=== PATIENT | female | born 1995 | race Caucasian/White ===

== ENCOUNTER → 2016-09-01 | Day surgery (SDC) | payer OTHER ==
[2016-08-31 18:54] LABS: BASOPHIL # 0.1 10^3/uL (0.0-0.1); BASOPHIL % 0.4 % (0.0-0.2); EOSINOPHIL # 0.2 10^3/uL (0.0-0.2); EOSINOPHIL % 1.3 % (0.0-5.0); HEMATOCRIT 36.9 % (36.0-46.0); HEMOGLOBIN 12.2 g/dL (12.0-15.0); LYMPHOCYTES # 3.3 10^3/uL (1.0-4.8); LYMPHOCYTES % 20.4 % (24.0-44.0); MEAN CELL HGB 26.7 pg (26-34); MEAN CELL HGB CONCENTRATION 33.1 g/dL (33-37); MEAN CORP VOLUME 80.7 fL (78-100); MEAN PLATELET VOLUME 11.9 fL (7.8-11.0); MONOCYTES # 0.7 10^3/uL (0.3-0.8); NEUTROPHILS % 73.6 % (41.0-85.0); RED CELL DISTRIBUTION WIDTH 14.9 % (11.5-14.5); WHITE BLOOD CELL 16.4 10^3/uL (4.5-11.0)
[2016-08-31 19:09] LABS: CALCIUM 9.4 mg/dL (8.4-10.5); CARBON DIOXIDE 24.8 mmol/L (20.0-32)
[2016-08-31 19:15] LABS: BILIRUBIN,URINE NEGATIVE (NEGATIVE); UROBILINOGEN,URINE NORMAL (NEGATIVE)
[2016-08-31 19:16] LABS: APPEARANCE,URINE CLOUDY (CLEAR); UA COLOR YELLOW (YELLOW)
[~2016-09-01] VITALS: Ht 170.2 cm; Wt 102.5 kg
[2016-09-01] VITALS (10 sets, daily range): BP systolic 115–132; BP diastolic 72–85
[~2016-09-01] MED LIST: DECADRON ONE; DIPRIVAN IV ONE; DOXY100T PO; GLIP5TAB10 PO; HYDR-926 PO; IBUP800T PO; METHYLENE BLUE IJ ONE; MOTRIN ONE; MOTRIN PO ONE; PULMICORT IH ONE; PULMICORT IH STA; SENSORCAINE-MPF 0.5% VIAL ONE; SODIUM CHLORIDE IR ONE; SODIUM CHLORIDE IRR BAG 1,000 ML ONE; SUBLIMAZE ONE; TORADOL ONE; VENTOLIN IH ONE; VENTOLIN IH SCH; VENTOLIN IH STA; VERSED ONE; ZEMURON IV ONE; ZOFRAN ONE
[2016-09-01] MEDS: NS 1000ML 1,000 ML IV SCH ×2 (07:58→10:45)
== END | disposition home or self-care (01) ==
LOC: SDC 00:11
PROVIDERS: ATTEND Obstetrics & Gynecology
DX: N70.11 Chronic salpingitis (principal); I10 Essential (primary) hypertension; J45.909 Unspecified asthma, uncomplicated
CPT/HCPCS: 36415; 49320; 80048; 81000; 81025; 82948; 85025; 87086; 94640; A4338; J1100; J1885; J2250; J2405; J3010; J3490 ×2; J7030 ×2; J7613; J7627

== ENCOUNTER → 2016-11-15 | Outpatient (CLI) | payer OTHER ==
[~2016-11-15] MED LIST changes: -DECADRON ONE; -DIPRIVAN IV ONE; -METHYLENE BLUE IJ ONE; -MOTRIN ONE; -MOTRIN PO ONE; -PULMICORT IH ONE; -PULMICORT IH STA; -SENSORCAINE-MPF 0.5% VIAL ONE; -SODIUM CHLORIDE IR ONE; -SODIUM CHLORIDE IRR BAG 1,000 ML ONE; -SUBLIMAZE ONE; -TORADOL ONE; -VENTOLIN IH ONE; -VENTOLIN IH SCH; -VENTOLIN IH STA; -VERSED ONE; -ZEMURON IV ONE; -ZOFRAN ONE
[2016-11-15 11:17] LABS: BASOPHIL # 0.1 10^3/uL (0.0-0.1); BASOPHIL % 0.7 % (0.0-0.2); BILIRUBIN,URINE NEGATIVE (NEGATIVE); EOSINOPHIL # 0.2 10^3/uL (0.0-0.2); EOSINOPHIL % 1.3 % (0.0-5.0); HEMATOCRIT 36.5 % (36.0-46.0); HEMOGLOBIN 12.2 g/dL (12.0-15.0); LYMPHOCYTES # 2.3 10^3/uL (1.0-4.8); LYMPHOCYTES % 19.4 % (24.0-44.0); MEAN CELL HGB 27.1 pg (26-34); MEAN CELL HGB CONCENTRATION 33.4 g/dL (33-37); MEAN CORP VOLUME 81.1 fL (78-100); MEAN PLATELET VOLUME 12.2 fL (7.8-11.0); MONOCYTES # 0.5 10^3/uL (0.3-0.8); MONOCYTES % 3.9 % (5.0-12.0); NEUTROPHIL # 8.8 10^3/uL (1.8-7.7); NEUTROPHILS % 74.3 % (41.0-85.0); RED CELL DISTRIBUTION WIDTH 14.3 % (11.5-14.5); UROBILINOGEN,URINE NORMAL (NEGATIVE); WHITE BLOOD CELL 11.9 10^3/uL (4.5-11.0)
[2016-11-15 11:57] LABS: APPEARANCE,URINE CLEAR (CLEAR); UA COLOR YELLOW (YELLOW)
[2016-11-15 11:58] LABS: WBC,URINE NONE SEEN WBC/HPF (0-2)
[2016-11-15 12:04] LABS: CALCIUM 8.9 mg/dL (8.4-10.5); CARBON DIOXIDE 24.9 mmol/L (20.0-32)
== END | disposition home or self-care (01) ==
LOC: LAB 10:58
PROVIDERS: ATTEND Pediatrics
DX: I10 Essential (primary) hypertension (principal); E11.9 Type 2 diabetes mellitus without complications; R53.83 Other fatigue
CPT/HCPCS: 36415; 80053; 80061; 81000; 83036; 85025; 85651; 87086

== ENCOUNTER → 2016-11-16 | Outpatient (CLI) | payer OTHER ==
[2016-11-16 10:16] LABS: BASOPHIL # 0.1 10^3/uL (0.0-0.1); BASOPHIL % 0.9 % (0.0-0.2); EOSINOPHIL # 0.2 10^3/uL (0.0-0.2); EOSINOPHIL % 1.5 % (0.0-5.0); HEMATOCRIT 38.1 % (36.0-46.0); HEMOGLOBIN 12.7 g/dL (12.0-15.0); LYMPHOCYTES # 2.4 10^3/uL (1.0-4.8); LYMPHOCYTES % 20.6 % (24.0-44.0); MEAN CELL HGB CONCENTRATION 33.3 g/dL (33-37); MEAN CORP VOLUME 81.1 fL (78-100); MEAN PLATELET VOLUME 12.2 fL (7.8-11.0); MONOCYTES # 0.5 10^3/uL (0.3-0.8); MONOCYTES % 4.2 % (5.0-12.0); NEUTROPHIL # 8.5 10^3/uL (1.8-7.7); NEUTROPHILS % 72.5 % (41.0-85.0); RED CELL DISTRIBUTION WIDTH 14.3 % (11.5-14.5); WHITE BLOOD CELL 11.7 10^3/uL (4.5-11.0)
== END | disposition home or self-care (01) ==
LOC: LAB 09:23
PROVIDERS: ATTEND Pediatrics
DX: R10.13 Epigastric pain (principal); R53.81 Other malaise
CPT/HCPCS: 36415; 80076; 82150; 83690; 84702; 84703; 85025; 86677

== ENCOUNTER → 2017-04-06 | Outpatient (CLI) | payer OTHER ==
[~2017-04-06] MED LIST changes: +IBUP-1131 PO; -IBUP800T PO
--- NOTE | 2017-04-06 12:18 | DIREP ---
PROCEDURE:US OB 1ST TRIMESTER COMPARISON:None. INDICATIONS:O24.414 GEST DIABETES, Z3A.01 LESS THAN 8 WKS TECHNIQUE:Transabdominal and endovaginal pelvic ultrasound examinations were performed. Endovaginal images were performed to optimally evaluate the and maternal adnexal structures. FINDINGS: UTERUS: 7.6 x 4.8 x 6.0 cm. Nabothian cysts. RIGHT OVARY: 4.3 x 2.3 x 2.4 cm. Negative. LEFT OVARY: 3.3 x 1.9 x 1.9 cm. Negative. CUL-DE-SAC: Negative. GESTATIONAL SAC: Present. No subchorionic hemorrhage YOLK SAC: Present. POLE: Present and normal appearing. CRL - 0.62 cm. CARDIAC ACTIVITY: Present. The heart rate is 114 bpm. CLINICAL AGE: 6 W 2D. SONOGRAPHIC AGE: 6W 3D. TABITHA (AUA): 11/27/2017 OTHER: No additional findings. CONCLUSION: 1. Viable intrauterine . 2. biometrics suggest a gestational age of approximately 6W 3D. Dictated by: BASIA Physician on 04/06/2017 at 11:10 AM ld
== END | disposition home or self-care (01) ==
LOC: RAD 09:37
PROVIDERS: ATTEND Obstetrics & Gynecology
DX: O24.414 Gestational diabetes mellitus in pregnancy, insulin controlled (principal); Z3A.01 Less than 8 weeks gestation of pregnancy
CPT/HCPCS: 76801; 76817

== ENCOUNTER → 2017-05-05 | Outpatient (CLI) | payer OTHER ==
--- NOTE | 2017-04-27 14:53 | DIREP ---
PROCEDURE:US OB 1ST TRIMESTER COMPARISON:[facility], US, US OB 1ST TRI TRANS ABD, 04/06/2017, 10:33 AM. INDICATIONS:vaginal bleeding TECHNIQUE:Transabdominal and endovaginal pelvic ultrasound examinations were performed. Endovaginal images were performed to optimally evaluate the and maternal adnexal structures. FINDINGS: GESTATIONAL SAC:Present and normal appearing. PLACENTA:No subchorionic hemorrhage. AMNIOTIC FLUID:Volume within normal limits. POLE:Present and normal appearing. CRL = 2.5 cm, corresponding to an EGA of 9 weeks , 2 days. YOLK SAC:Present. CARDIAC ACTIVITY:Present. 170 bpm. UTERUS:Normal. OVARIES:Normal in size, shape, and echogenicity. The right ovary measures 3.9 x 2.9 x 2.2 cm. The left ovary measures 3.6 x 2.1 x 2.0 cm. There are no adnexal masses. CUL-DE-SAC:Normal. No free fluid. US TABITHA:November 28, 2017. There has been appropriate interval growth from the initial exam. OTHER:Negative. CONCLUSION: Single live intrauterine with an estimated gestational age of 9 weeks, 2 days. There has been appropriate interval growth from the initial ultrasound. Dictated by: Grey Street MD on 04/27/2017 at 02:49 PM
--- NOTE | 2017-05-05 14:09 | DIREP ---
PROCEDURE:US OB 1ST TRIMESTER COMPARISON:[facility], , US OB 1ST TRI TRANS ABD, 04/06/2017, 10:33 AM. [facility], US, US OB 1ST TRI TRANS ABD, 04/27/2017, 02:02 PM. INDICATIONS:Z3A.10 IUP @ 10 WKS, O24.111 TYPE 2 DIABETES FIRST TRIMESTER TECHNIQUE:Transabdominal and endovaginal pelvic ultrasound examinations were performed. Endovaginal images were performed to optimally evaluate the and maternal adnexal structures. FINDINGS: Confirmed dates on 1st ultrasound 04/06/2017 with TABITHA 11/28/2017. GESTATIONAL SAC:Present. POLE:Present. CRL = 3.7 cm, corresponding to an EGA of 10 weeks 4 days. YOLK SAC:Present. CARDIAC ACTIVITY:Present. 163 bpm. UTERUS:Normal. OVARIES:Normal in size, shape, and echogenicity. The right measures 3.4 x 2.4 x 2.4 cm. The left measures 2.3 x 2.0 x 1.6 cm. There are no adnexal masses. CUL-DE-SAC:Normal. US TABITHA:November 27, 2017 CLINICAL GA:10 weeks 3 days CLINICAL TABITHA:November 28, 2017 OTHER:Negative. CONCLUSION: 1. Single live intrauterine . Dictated by: [facility] Physician on 05/05/2017 at 11:52 AM ld
== END | disposition home or self-care (01) ==
LOC: RAD 04-27 13:47
PROVIDERS: ATTEND Hospitalist
DX: O24.111 Pre-existing type 2 diabetes mellitus, in pregnancy, first trimester (principal); O46.91 Antepartum hemorrhage, unspecified, first trimester; N93.9 Abnormal uterine and vaginal bleeding, unspecified; Z3A.10 10 weeks gestation of pregnancy
CPT/HCPCS: 76801; 76817

== ENCOUNTER → 2017-06-16 | Outpatient (CLI) | payer OTHER | END | disposition home or self-care (01) | LOC: LAB 07:40 | PROVIDERS: ATTEND Pediatrics | DX: J02.9 Acute pharyngitis, unspecified (principal) | CPT/HCPCS: 87070; 87880 ==

== ENCOUNTER 2017-09-05 12:26 | Observation (INO) | payer OTHER ==
[~2017-09-05] VITALS: Ht 172.7 cm; Wt 107.5 kg
[2017-09-05] MEDS ORDERED: CLINDAMYCIN IV ONE (12:27)
[2017-09-05] MEDS ORDERED: DEXTROSE IV ONE (12:27)
[2017-09-05] MEDS ORDERED: [UNRECOGNIZED DRUG - OTHER] IV ONE (12:27)
[2017-09-05 13:16] LABS: BILIRUBIN,URINE NEGATIVE (NEGATIVE); UROBILINOGEN,URINE NORMAL (NEGATIVE)
[2017-09-05 13:22] LABS: APPEARANCE,URINE CLEAR (CLEAR); UA COLOR YELLOW (YELLOW)
[2017-09-05] MEDS ORDERED: LACTATED RINGERS 2,000 ML ONE (13:28)
[2017-09-05] MEDS ORDERED: BRETHINE SQ ONE (13:28)
[2017-09-05] MEDS: BRETHINE SQ PRN ×3 (13:37→14:17)
[2017-09-05] MEDS: LACTATED RINGERS 1,000 ML IV SCH ×2 (13:38→13:57)
[2017-09-05] MEDS ORDERED: INSU100I13 SQ (13:41)
[2017-09-05] MEDS ORDERED: IRON1CAP13 PO (13:42)
[2017-09-05] MEDS ORDERED: MAGNESIUM SULFATE IV ONE (13:44)
[2017-09-05] MEDS ORDERED: DEMEROL IV STA (14:40)
[2017-09-05] MEDS ORDERED: PHENERGAN ONE (14:43)
[2017-09-05] MEDS ORDERED: CELESTONE SOLUSPAN 6 MG/ML ONE (14:44)
[2017-09-05] MEDS ORDERED: AMPICILLIN SODIUM ONE (14:51)
[2017-09-05] MEDS ORDERED: NS 100ML 100 ML IV ONE (14:51)
[2017-09-05] MEDS ORDERED: CELESTONE SOLUSPAN 6 MG/ML IM SCH (15:00)
[2017-09-05] MEDS ORDERED: MAGNESIUM SULFATE 1,000 ML IV SCH (15:00)
[2017-09-05] MEDS ORDERED: CLEOCIN IV SCH (15:00)
[2017-09-05] MEDS ORDERED: PHENERGAN 25 MG in HNS 50ML 50 ML IV PRN ×2 (15:00→15:30)
--- NOTE | 2017-09-05 15:07 | PCM.HP ---
OB - Chief Complaint & HPI Date of Admission: Date of Admission: September 05, 2017 at 12:26 Diagnosis Kim is a 22yo morbidly obese WF at 28 0/7 weeks' gestation, who is currently a patient of [facility] in [place]. She had been Dr Ly's patient at the start of the , and then she became my patient when Dr Ly left [facility], and now she has transferred to [facility] completely (patient preference, but she is also very high risk on account of needing so much Lantus/ Levemir insulin each day). 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 She went to work this morning, and at about 10:30am she started to feel contractions. She came over to L&D to be put on the monitor, and she was indeed maddi Q 2-5mins apart. She has now received IVFs, SQ TBT X 3 doses , and IV Demerol/Phenergan, and she has continued to contract. We are about to start IV Magnesium Sulfate. Dr Ovalle from [facility] has agreed to accept this patient into his care. We are waiting on the highway inspector team to arrive to take her back with them to [place] (via helicopter). Chief Complaint/History : 2 Para: 1 EDC: Nov 28, 2017 EGA: 28 0/7 weeks Reason for admission: IUP - Admission Nurse Assessment Rev: Yes OB - History Hx of Present Care: Good Care Other Concerns: PRE-EXISTING DIABETES, CURRENTLY ON LEVEMIR/LANTUS INSULIN TWICE DAILY ( DEPENDING ON WHAT HER INSURANCE WILL PAY FOR). Past Family/Social History * Past Medical, Surgical, Family and Obstetric Histories reviewed from chart. OB - Admission Exam Physical Exam Vitals: VS - Last 72 Hours, by Label Date Time Temp Pulse Resp B/P (MAP) Pulse Ox O2 Delivery O2 Flow Rate FiO2 09/05/17 13:44 Room Air HEENT: NCAT Lungs: Clear Abdomen: Gravid Extremities: Normal Reflexes: Normal Cervical Dilatation: 1cm Membranes: Intact Heart Rate: 130's Contractions on Admission: < 5 Minutes Apart Frequency of Contractions: Q 2-5mins apart Intensity: Moderate Presentation: unk OB - Assessment/Plan Assessment Assessment: IUP - ( LABOR) Plan Other Plan IV Magnesium Sulfate tocolysis, IV Clindamycin (pt is allergic to PCN), 12mg IM Celestone...transfer to [place] for further management plans. TOMASA MARKHAM MD September 05, 2017 15:07
[2017-09-05] MEDS ORDERED: MAGNESIUM SULFATE 100 ML IV ONE (15:30)
--- NOTE | 2017-09-05 17:11 | PRM.DC ---
OB Discharge Summary Discharge Summary Discharge Diagnosis: IUP (28 0/7 weeks' gestation) Complications: Other ( LABOR) Abnormal Lab Results Laboratory Tests Test 09/05/17 13:02 Urine Collection Type VOID Urine Color YELLOW Urine Appearance CLEAR Urine Bilirubin NEGATIVE MG/DL Urine Ketones NEGATIVE Urine Specific [place] 1.015 Urine pH 6 Urine Protein NEGATIVE Urine Urobilinogen NORMAL Urine Nitrate NEGATIVE Urine Leukocyte Esterase NEGATIVE Urine Blood NEGATIVE Urine Glucose NORMAL Discharge Disposition: Stable Additional Comments OB HIGH RISK FLIGHT CREW FROM [facility] ARRIVED TO OUR HOSPITAL TO TAKE JOSE TO [place]. Sharda Galaviz RN checked the patient and she was still 1cm right before putting her on the stretcher. Magnesium was infusing at 2grams/hour. Pt still lucid and contractions still about 3mins apart. Appreciate [facility] and [facility]'s input into the care of this patient. TOMASA MARKHAM MD September 05, 2017 17:11
== END 2017-09-05 16:30 | disposition short-term general hospital (02) ==
LOC: ATP 12:26
PROVIDERS: ADMIT Hospitalist; ATTEND Hospitalist
DX: O60.03 Preterm labor without delivery, third trimester (principal); O99.213 Obesity complicating pregnancy, third trimester; E66.01 Morbid (severe) obesity due to excess calories; O24.113 Pre-existing type 2 diabetes mellitus, in pregnancy, third trimester; E11.9 Type 2 diabetes mellitus without complications; Z79.4 Long term (current) use of insulin; Z3A.28 28 weeks gestation of pregnancy
CPT/HCPCS: 59025; 81002; 96365; 96368; 96372 ×2; 96375; G0378 ×4; J0290; J2175; J2550; J3105; J3475 ×2; J7050; J7120; J0702; J3490

== ENCOUNTER 2018-02-19 23:09 | Emergency (ER) | payer OTHER ==
[~2018-02-19] VITALS: Ht 172.7 cm; Wt 95.3 kg
[~2018-02-19 23:09] MED LIST changes: +HYDR-3468 PO; -HYDR-926 PO; +INSU100I13 SQ; +IRON1CAP13 PO
[2018-02-19 23:19] VITALS: BP 158/102
[2018-02-19] MEDS ORDERED: LACTATED RINGERS 1,000 ML ONE (23:34)
[2018-02-19] MEDS ORDERED: ZOFRAN ONE (23:34)
[2018-02-19] MEDS ORDERED: MORPHINE SULFATE ONE (23:34)
[2018-02-19] MEDS ORDERED: MORPHINE SULFATE IV STA (23:35)
[2018-02-19] MEDS ORDERED: IMODIUM PO STA (23:35)
[2018-02-19] MEDS ORDERED: ZOFRAN IV STA (23:35)
[2018-02-19] MEDS ORDERED: LACTATED RINGERS 1,000 ML IV STA (23:35)
--- NOTE | 2018-02-19 23:45 | ER.PDOC ---
General Chief Complaint: Abdomen Pain Stated Complaint: ABD PAIN Time seen by MD: 23:37 Source: patient Exam Limitations: no limitations History of Present Illness Initial Comments Nausea/vomiting/diarrhea/abdominal pain for 2 days. Severity/Quality: moderate, burning Abdominal Pain Onset Location: Epigastric Associated Symptoms (vomiting): freq vomitng Associated Symptoms (diarrhea): watery Allergies: Coded Allergies: Sulfa (Sulfonamide Antibiotics) (Verified Allergy, Severe, VOMITING, SEVERE RASH, 09/03/15) Penicillins (Verified Allergy, Unknown, RASH, VOMITING, 09/03/15) cephalexin (Verified Allergy, Unknown, RASH, VOMITING, 09/03/15) Home Meds Reported Medications Iron Fum & Ps Cmp/Vit C & B (INTEGRA CAPSULE) 1 Each Capsule, 1 EACH PO DAILY24 , CAPSULE 09/05/17 Insulin Glargine,Hum.rec.anlog (LANTUS SOLOSTAR) 100 Unit/1 Ml Insuln.pen, 80 UNITS SQ BID, #15 MILLILITER 3 Refills 09/05/17 Vital Signs First Vital Signs Date Time Temp Pulse Resp B/P (MAP) Pulse Ox O2 Delivery O2 Flow Rate FiO2 02/19/18 23:19 98.0 68 20 98.0 02/19/18 23:19 97 Room Air 02/19/18 23:19 158/102 (120) Last Vital Signs Date Time Temp Pulse Resp B/P (MAP) Pulse Ox O2 Delivery O2 Flow Rate FiO2 02/19/18 23:19 98.0 73 20 158/102 (120) 97 Room Air 98.0 Past Medical History Medical History: diabetes Surgical History: cholecystectomy LMP (females 10-50): HAS NOT HAD PERIOD SINCE OF HER BABY IN OCTOBER THIS YEAR Social History Smoking: non-smoker Alcohol Use: occassionally Drug Use: none Constitutional: no symptoms reported EENTM: no symptoms reported Respiratory: no symptoms reported Cardiovascular: no symptoms reported Gastrointestinal: see HPI Genitourinary: no symptoms reported All Other Systems: Reviewed and Negative Physical Exam General Appearance: No Apparent Distress, WD/WN Neck: Non-Tender, Full Range of Motion, Supple, Normal Inspection Respiratory: chest non-tender, lungs clear, normal breath sounds, no respiratory distress, no accessory muscle use Cardiovascular: Normal Peripheral Pulses, Regular Rate, Rhythm, No Edema, No Gallop, No JVD, No Murmur Gastrointestinal: Normal Bowel Sounds, No Organomegaly, No Pulsatile Mass, Guarding, Tenderness (epigastric) Back: Normal Inspection, No CVA Tenderness, No Vertebral Tenderness Extremities: Normal Range of Motion, Non-Tender, Normal Inspection, No Pedal Edema, No Calf Tenderness, Normal Capillary Refill, Pelvis Stable Neurologic/Psychiatric: staple laster II-XII NML as Tested, No Motor/Sensory Deficits, Alert, Normal Mood/Affect, Oriented x 3 Skin: Normal Color, Warm/Dry Lymphatic: No Adenopathy Results/Orders Results/Orders Laboratory Tests Test 02/19/18 23:43 02/19/18 23:49 White Blood Count 13.1 10^3/uL (4.5-11.0) Red Blood Count 4.86 10^6/uL (4.00-5.20) Hemoglobin 12.0 g/dL (12.0-15.0) Hematocrit 36.4 % (36.0-46.0) Mean Corpuscular Volume 74.9 fL (78-100) Mean Corpuscular Hemoglobin 24.7 pg (26-34) Mean Corpuscular Hemoglobin Concent 33.0 g/dL (33-37) Red Cell Distribution Width 15.4 % (11.5-14.5) Platelet Count 321 10^3/uL (150-400) Mean Platelet Volume 11.8 fL (7.8-11.0) Neutrophils (%) (Auto) 64.2 % (41.0-85.0) Lymphocytes (%) (Auto) 27.6 % (24.0-44.0) Monocytes (%) (Auto) 5.3 % (5.0-12.0) Neutrophils # (Auto) 8.4 10^3/uL (1.8-7.7) Lymphocytes # (Auto) 3.6 10^3/uL (1.0-4.8) Monocytes # (Auto) 0.7 10^3/uL (0.3-0.8) Absolute Immature Granulocyte (auto 0.04 10^3 u/L (0-2) Eosinophils % 2.1 % (0.0-5.0) Basophils % 0.5 % (0.0-0.2) Basophils # 0.1 10^3/uL (0.0-0.1) Eosinophil Count 0.3 10^3/uL (0.0-0.2) Sodium Level 139 mmol/L (132-145) Potassium Level 3.9 mmol/L (3.6-5.2) Chloride Level 102.0 mmol/L (96-109) Carbon Dioxide Level 24.9 mmol/L (20.0-32) Anion Gap 16.0 Blood Urea Nitrogen 16 mg/dL (7-18) Creatinine 0.92 mg/dL (0.59-1.40) Estimated GFR () 90.7 (>/=60) BUN/Creatinine Ratio 17.0 Glucose Level 223 mg/dL (70-110) Calcium Level 9.7 mg/dL (8.4-10.5) Total Bilirubin 0.4 mg/dL (0.2-1.0) Aspartate Amino Transf (AST/SGOT) 19 U/L (0-35) Alanine Aminotransferase (ALT/SGPT) 37 U/L (12-78) Alkaline Phosphatase 122 U/L (50-136) Total Protein 8.3 g/dL (6.4-8.2) Albumin 3.5 g/dL (3.4-5.0) Globulin 4.8 Lipase 189 U/L (114-286) Serum HCG, Qualitative NEGATIVE (NEGATIVE) Percent Immature Gran (Cell Imm) 0.30 % (0.00-0.50) Differential Total Cells Counted 100 #CELLS Segmented Neutrophils 66 % (31-76) Lymphocytes 29 % (25-36) Monocytes 4 % (3-9) Absolute Eosinophils (Manual) 1 % (1-4) Platelet Estimate ADEQUATE Platelet Morphology NORMAL Blood Morphology Comment NORMAL MORPHOLOGY Administered Medications Medications (Trade) Dose Ordered Sig/Shamar Route PRN Reason Start Time Stop Time Status Last Admin Dose Admin Morphine Sulfate (Morphine Sulfate) 4 mg STAT STAT IV 02/19/18 23:35 02/19/18 23:37 DC 02/20/18 00:01 Ondansetron HCl (Zofran) 4 mg STAT STAT IV 02/19/18 23:35 02/19/18 23:37 DC 02/20/18 00:02 Loperamide HCl (Imodium) 4 mg STAT STAT PO 02/19/18 23:35 02/19/18 23:37 DC 02/20/18 00:02 Famotidine (Pepcid) 20 mg STAT STAT IV 02/20/18 00:06 02/20/18 00:08 DC 02/20/18 00:09 EKG/XRAY/CT/US CT Comments: No acute process on CT abdomen/pelvis Departure Time of Disposition: :26 Disposition: HOME, SELF-CARE Impression: Primary Impression: Gastroenteritis Condition: Stable Referrals: VANE JUÁREZ MD (PCP) PRIMARY CARE PROVIDER Additional Instructions: Zofran Imodium OTC as directed Start feeding with clear liquids and advance diet as tolerated F/U with your PCP in 2-3 days Duration or Time Spent with Pa: 60 mins ODILIA,AKIKO Hyde MD Feb 19, 2018 23:45
[2018-02-19 23:46] LABS: BASOPHIL # 0.1 10^3/uL (0.0-0.1); BASOPHIL % 0.5 % (0.0-0.2); EOSINOPHIL # 0.3 10^3/uL (0.0-0.2); EOSINOPHIL % 2.1 % (0.0-5.0); LYMPHOCYTES # 3.6 10^3/uL (1.0-4.8); LYMPHOCYTES % 27.6 % (24.0-44.0); MEAN CELL HGB 24.7 pg (26-34); MEAN CORP VOLUME 74.9 fL (78-100); MEAN PLATELET VOLUME 11.8 fL (7.8-11.0); MONOCYTES # 0.7 10^3/uL (0.3-0.8); MONOCYTES % 5.3 % (5.0-12.0); NEUTROPHIL # 8.4 10^3/uL (1.8-7.7); NEUTROPHILS % 64.2 % (41.0-85.0); RED CELL DISTRIBUTION WIDTH 15.4 % (11.5-14.5); WHITE BLOOD CELL 13.1 10^3/uL (4.5-11.0)
[2018-02-20] LABS: CALCIUM 9.7 mg/dL (8.4-10.5); CARBON DIOXIDE 24.9 mmol/L (20.0-32)
[2018-02-20] MEDS ORDERED: IMODIUM ONE (00:02)
[2018-02-20] MEDS ORDERED: PEPCID IV STA (00:06)
[2018-02-20] MEDS ORDERED: PEPCID IV ONE (00:07)
--- NOTE | 2018-02-20 00:22 | NUR ---
CT CALLED RADIOLOGY FOR CT AND NO ANSWER.
[2018-02-20 00:26] LABS: EOSINOPHIL 1 % (1-4); LYMPHOCYTE 29 % (25-36); MONOCYTE 4 % (3-9); SEGMENTED NEUTROPHILS 66 % (31-76)
--- NOTE | 2018-02-20 00:30 | NUR ---
CT PATIENT TO CT VIA W/C.
--- NOTE | 2018-02-20 00:41 | NUR ---
CT PATIENT RETURNED FROM CT VIA W/C
--- NOTE | 2018-02-20 01:19 | DIREP ---
PROCEDURE:CT ABD/PELVIS WITH CONTRAST TECHNIQUE:No oral contrast was given. Following the intravenous administration of contrast material, axial cuts were obtained from the dome of the diaphragm to the ischial tuberosities. The images were viewed at lung and soft tissue settings. Sagittal and coronal reconstructions are provided. COMPARISON:CT, CT ABD/PELVIS W/O, 02/12/2016, 09:49 AM. INDICATIONS:upper abdominal pain FINDINGS: LOWER CHEST:No infiltrate or pleural effusion. LIVER:Moderately severe fatty infiltration. BILIARY:Cholecystectomy. No biliary duct dilatation. PANCREAS:Normal. SPLEEN:Normal. URINARY TRACT:Normal nephrograms without obstruction or perinephric inflammation. Unremarkable urinary bladder. ADRENALS:Normal. AORTA/VASCULAR:Normal. RETROPERITONEUM:No pathologic adenopathy. BOWEL/MESENTERY:No bowel obstruction, inflammatory stranding, free fluid or air. Normal appendix. ABDOMINAL WALL:Normal. PELVIS:Normal. BONES:Stable prominent inguinal lymph nodes. OTHER:Normal. CONCLUSION: 1. Interval cholecystectomy. 2. Hepatic fatty infiltration. 3. No acute process. Dictated by: Rita Calzada MD on 02/20/2018 at 01:13 AM
--- NOTE | 2018-02-20 01:40 | NUR ---
IV 20G IV REMOVED FROM LT WRIST. CATHETER WAS INTACT. HELD PRESSURE UNTIL NO FURTHER BLEEDING AND APPLIED BAND AID.
[2018-02-20 01:48] VITALS: BP 107/69
== END 2018-02-20 01:45 | disposition home or self-care (01) ==
LOC: ER 23:09
DX: K52.9 Noninfective gastroenteritis and colitis, unspecified (principal); E11.9 Type 2 diabetes mellitus without complications; Z90.49 Acquired absence of other specified parts of digestive tract; Z88.0 Allergy status to penicillin; Z88.2 Allergy status to sulfonamides; Z88.1 Allergy status to other antibiotic agents; Z79.4 Long term (current) use of insulin; Z79.899 Other long term (current) drug therapy
CPT/HCPCS: 36415; 74177; 80053; 83690; 84703; 85025; 96374; 96375; 99285; J2270; J2405; J3490; J7120; Q9965

== ENCOUNTER → 2019-04-09 | Outpatient (CLI) | payer OTHER ==
[2019-04-09 12:12] LABS: BILIRUBIN,URINE NEGATIVE (NEGATIVE); UROBILINOGEN,URINE NORMAL (NEGATIVE)
[2019-04-09 12:13] LABS: HEMOGLOBIN 11.4 g/dL (12.0-15.0); MEAN CELL HGB 26.2 pg (26-34); MEAN CELL HGB CONCENTRATION 32.3 g/dL (33-37); MEAN CORP VOLUME 81.1 fL (78-100); MEAN PLATELET VOLUME 11.3 fL (7.8-11.0); RED CELL DISTRIBUTION WIDTH 15.3 % (11.5-14.5); WHITE BLOOD CELL 15.6 10^3/uL (4.5-11.0)
[2019-04-09 12:25] LABS: APPEARANCE,URINE CLEAR (CLEAR); UA COLOR YELLOW (YELLOW)
[2019-04-09 12:37] LABS: CARBON DIOXIDE 23.9 mmol/L (20.0-32)
[2019-04-09 15:51] LABS: BASOPHIL 1 % (0-2); EOSINOPHIL 2 % (1-4); LYMPHOCYTE 20 % (25-36); MONOCYTE 4 % (3-9); SEGMENTED NEUTROPHILS 73 % (31-76)
== END | disposition home or self-care (01) ==
LOC: LAB 11:00
PROVIDERS: ATTEND Family Medicine
DX: O20.8 Other hemorrhage in early pregnancy (principal); O26.899 Other specified pregnancy related conditions, unspecified trimester; M79.10 Myalgia, unspecified site; Z3A.00 Weeks of gestation of pregnancy not specified
CPT/HCPCS: 36415; 80053; 81002; 85027; 87804

== ENCOUNTER → 2019-04-30 | Outpatient (CLI) | payer OTHER ==
[2019-04-30 09:55] LABS: MEAN CORP HGB 25.7 pg (26-34); RED CELL DISTRIBUTION WIDTH 15.1 % (11.5-14.5)
[2019-04-30 10:22] LABS: CALCIUM 9.3 mg/dL (8.4-10.5); CARBON DIOXIDE 27.6 mmol/L (20.0-32)
== END | disposition home or self-care (01) ==
LOC: LAB 09:34
PROVIDERS: ATTEND Obstetrics & Gynecology
DX: O24.111 Pre-existing type 2 diabetes mellitus, in pregnancy, first trimester (principal); Z3A.00 Weeks of gestation of pregnancy not specified
CPT/HCPCS: 36415; 80053; 83036; 85027; 86318; 86592; 86762; 86900

== ENCOUNTER → 2019-05-20 | Outpatient (CLI) | payer OTHER | END | disposition home or self-care (01) | LOC: LAB 17:09 | PROVIDERS: ATTEND Obstetrics & Gynecology | DX: Z34.81 Encounter for supervision of other normal pregnancy, first trimester (principal); Z3A.00 Weeks of gestation of pregnancy not specified | CPT/HCPCS: 82570; 84156 ==

== ENCOUNTER → 2019-06-25 | Outpatient (CLI) | payer OTHER | END | disposition home or self-care (01) | LOC: LAB 09:19 | PROVIDERS: ATTEND Obstetrics & Gynecology | DX: O24.112 Pre-existing type 2 diabetes mellitus, in pregnancy, second trimester (principal); Z3A.00 Weeks of gestation of pregnancy not specified | CPT/HCPCS: 36415; 82105 ==

== ENCOUNTER 2019-07-16 16:05 | Emergency (ER) | payer OTHER ==
[~2019-07-16] VITALS: Ht 170.2 cm; Wt 95.3 kg
[2019-07-16 16:14] VITALS: BP 128/82
[2019-07-16 16:32] VITALS: BP 128/82
[2019-07-16 16:40] VITALS: BP 128/82
--- NOTE | 2019-07-16 17:07 | DIREP ---
PROCEDURE:XRAY FOOT MIN 3 VWS-LT COMPARISON:None. INDICATIONS:left foot pain in FP 3 FINDINGS: BONES:Normal. No fracture. JOINTS:Normal. No dislocation. LisFranc alignment is normal. SOFT TISSUES:Normal. No localized soft tissue swelling. No radiopaque foreign body. OTHER:No additional findings. CONCLUSION: Unremarkable left foot. Dictated by: Grey Street MD on 07/16/2019 at 05:05 PM
--- NOTE | 2019-07-16 17:34 | ER.PDOC ---
General Chief Complaint: Extremities Stated Complaint: LEFT FOOT HURTING Time seen by MD: 16:20 Source: patient, family Exam Limitations: no limitations History of Present Illness Initial Comments Pt states her left foot and heel is terribly painful while walking and getting worse. pt states pain and stiffness in the morning that gets worse as the day progresses. Pt states talked to Dr Vargas today and he stated go to the ER and get an Xray now. Allergies: Coded Allergies: Sulfa (Sulfonamide Antibiotics) (Verified Allergy, Severe, VOMITING, SEVERE RASH, 09/03/15) Penicillins (Verified Allergy, Unknown, RASH, VOMITING, 09/03/15) cephalexin (Verified Allergy, Unknown, RASH, VOMITING, 09/03/15) Home Meds Reported Medications Iron Fum & Ps Cmp/Vit C & B (INTEGRA CAPSULE) 1 Each Capsule, 1 EACH PO DAILY24, CAPSULE 09/05/17 Insulin Glargine,Hum.rec.anlog (LANTUS SOLOSTAR) 100 Unit/1 Ml Insuln.pen, 80 UNITS SQ BID, #15 MILLILITER 3 Refills 09/05/17 Past Medical History Medical History: diabetes Surgical History: cholecystectomy Social History Alcohol Use: none Drug Use: none Results/Orders Results/Orders Orders - BROOKE OHARA [employer]GER Xr Foot Lt (07/16/19 16:27) Vital Signs Date Time Temp Pulse Resp B/P (MAP) Pulse Ox O2 Delivery O2 Flow Rate FiO2 07/16/19 16:40 98.1 107 18 128/82 (97) 99 Room Air 07/16/19 16:32 98.1 107 18 128/82 (97) 99 Room Air 07/16/19 16:32 98.1 107 18 07/16/19 16:14 98.1 107 18 99 Progress Progress Walking boot placed on the left lower extremity, by MT, pt tolerated it well Departure Time of Disposition: 17:30 Disposition: 01 HOME, SELF-CARE Impression: Primary Impression: Foot pain, left Additional Impression: Plantar fasciitis of left foot Condition: Stable Patient Instructions: Plantar Fasciitis (Heel Spur Syndrome) with Rehab- Sports[facility], RICE - Routine Care for Injuries, Banp-fl-Keru Referrals: VANE JUÁREZ MD (PCP) PRIMARY CARE PROVIDER Additional Instructions: Return if symptoms worsen. See PCP as needed. Follow up with Dr Vargas next week. 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
== END 2019-07-16 17:36 | disposition home or self-care (01) ==
LOC: ER 16:05
DX: M72.2 Plantar fascial fibromatosis (principal); E11.9 Type 2 diabetes mellitus without complications; Z79.4 Long term (current) use of insulin; Z88.0 Allergy status to penicillin; Z88.1 Allergy status to other antibiotic agents; Z88.2 Allergy status to sulfonamides; Z90.49 Acquired absence of other specified parts of digestive tract
CPT/HCPCS: 99283; 73630-LT

== ENCOUNTER → 2019-07-31 | Outpatient (CLI) | payer OTHER ==
[2019-07-31 09:30] LABS: BASOPHIL # 0.1 10^3/uL (0.0-0.1); BASOPHIL % 0.6 % (0.0-0.2); EOSINOPHIL # 0.2 10^3/uL (0.0-0.2); EOSINOPHIL % 1.8 % (0.0-5.0); LYMPHOCYTES % 15.8 % (24.0-44.0); MEAN CORP HGB 25.3 pg (26-34); MONOCYTES # 0.4 10^3/uL (0.3-0.8); MONOCYTES % 5.1 % (5.0-12.0); NEUTROPHIL # 6.2 10^3/uL (1.8-7.7); NEUTROPHILS % 75.7 % (41.0-85.0); PLATELET COUNT 227 10^3/uL (150-400); RED CELL DISTRIBUTION WIDTH 16.5 % (11.5-14.5)
== END | disposition home or self-care (01) ==
LOC: LAB 08:54
PROVIDERS: ATTEND Pediatrics
DX: J02.9 Acute pharyngitis, unspecified (principal); R06.02 Shortness of breath; R53.81 Other malaise
CPT/HCPCS: 36415; 85025; 87070; 87880

== ENCOUNTER → 2019-09-16 | Outpatient (CLI) | payer OTHER ==
[~2019-09-16] MED LIST changes: +MAKENA SQ ONE
[2019-09-16 13:03] LABS: MEAN CORP HGB 24.5 pg (26-34); RED CELL DISTRIBUTION WIDTH 16.9 % (11.5-14.5)
[2019-09-16 13:06] LABS: CALCIUM 8.7 mg/dL (8.4-10.5); CARBON DIOXIDE 20.2 mmol/L (20.0-32)
== END | disposition home or self-care (01) ==
LOC: LAB 12:30
PROVIDERS: ATTEND Obstetrics & Gynecology
DX: O24.113 Pre-existing type 2 diabetes mellitus, in pregnancy, third trimester (principal); O99.213 Obesity complicating pregnancy, third trimester; Z68.35 Body mass index [BMI] 35.0-35.9, adult; Z90.49 Acquired absence of other specified parts of digestive tract; Z79.899 Other long term (current) drug therapy; Z79.4 Long term (current) use of insulin; Z3A.28 28 weeks gestation of pregnancy
CPT/HCPCS: 36415; 80053; 82570; 83036; 84156; 85027; J1726

== ENCOUNTER 2019-09-26 16:24 | Observation (INO) | payer OTHER ==
[~2019-09-26] VITALS: Ht 172.7 cm; Wt 104.3 kg
[~2019-09-26 16:24] MED LIST changes: -MAKENA SQ ONE
[2019-09-26] MEDS ORDERED: CELESTONE SOLUSPAN ONE (17:14)
[2019-09-26] MEDS ORDERED: BRETHINE ONE ×2 (17:14→18:21)
[2019-09-26] MEDS ORDERED: LACTATED RINGERS 2,000 ML ONE (17:14)
[2019-09-26] MEDS ORDERED: BRETHINE SQ STA ×2 (17:24→18:00)
[2019-09-26] MEDS ORDERED: CELESTONE SOLUSPAN IM ONE (17:30)
[2019-09-26] MEDS: LACTATED RINGERS 1,000 ML IV SCH ×3 (17:51→19:55)
[2019-09-26 18:08] LABS: APPEARANCE,URINE CLEAR (CLEAR); BILIRUBIN,URINE NEGATIVE (NEGATIVE); UA COLOR AMBER (YELLOW); UROBILINOGEN,URINE NEGATIVE (NEGATIVE)
[2019-09-26] MEDS ORDERED: NS 25ML 25 ML IV ONE (18:44)
[2019-09-26] MEDS ORDERED: PHENERGAN ONE (18:44)
[2019-09-26] MEDS ORDERED: DEMEROL ONE (18:45)
[2019-09-26] MEDS ORDERED: DEMEROL IV STA (18:55)
[2019-09-26] MEDS ORDERED: DEMEROL IV PRN (19:00)
[2019-09-26] MEDS ORDERED: PHENERGAN IV PRN ×2 (19:00)
[2019-09-26] MEDS ORDERED: LACTATED RINGERS 1,000 ML ONE (19:30)
--- NOTE | 2019-09-26 19:36 | PCM.HP ---
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 No LOF/VB, good FM. PNC notable for CHTN, DM, obesity, asthma, H/O PTD x 2 PAST MEDICAL HISTORY: CHTN, DM, obesity, asthma SURGICAL HISTORY: hysteroscopy, laparoscopic cholecystectomy, diagnostic laparoscopy CURRENT MEDICATIONS: Lantus, Humulog, PNV ALLERGIES: PCN, Sulfa, Cephalexin FAMILY HISTORY: HTN SOCIAL HISTORY: no E/T/D, no STD Hx REVIEW OF SYSTEMS: CONST:No fever, fatigue, or weight changes. EYES: No recent vision problems. ENT: No congestion, ear pain, or sore throat. C/V: No chest pain, palpitations, or edema. RESP: No cough, congestion, wheezing or shortness of breath. GI: No constipation, or diarrhea. : No incontinence or dysuria. M/S: No joint pain or swelling. SKIN: No rash. NEURO: No headache, focal numbness or weakness, dizziness, or seizures. PSYCH: No depression or anxiety. ENDO: No thyroid problems. No polyuria or polydipsia. HEME: No abnormal bruising or bleeding. LYMPH: No swollen glands. IMMUN: No itching or hives. PHYSICAL EXAM: VITALS: VSSAF GENERAL: No acute distress, non-toxic appearing HEAD: Normal with no signs of head trauma. ENT: Hearing grossly intact, normal oropharynx. NECK: Supple, no tenderness, no lymphadenopathy, no masses, no thyromegaly LUNGS: Clear breath sounds. Heart: Reg rate. ABD: Bowel sounds normal, soft, nontender, no masses, no organomegaly, obese LYMPH: No lymphadenopathy noted. : SVE: 1-2/60/high EXT: Intact x 4 SKIN: No rashes or lesions. NEURO: Alert and oriented x3. Normal affect. FHTs: 140s, Category 1 toco: q2-4'' ASSESSMENT: IUP at 30 weeks with contractions, no cervical change, H/O delivery x 2. PLAN: Discussed with the patient the current situation regarding no cervical change after 1 L of IV fluids and terbutaline. However, with her history of delivery x 2 and the limited resources of our hospital, I discussed with her the possibility of transfer. Hopefully, if she doesn't progress, then she can return and continue her . She does not want to be transferred unless there is no other choice. Will give 3 L IV fluids total, Demerol and Phenergan for sedation and re-check SVE in 2 hours. Will look to transfer if persistent contractions. She verbalized good understanding. All questions answered. SARIKA JUÁREZ MD September 26, 2019 19:36
== END 2019-09-26 21:30 | disposition home or self-care (01) ==
LOC: EEVIPCON 16:24 → ATP 16:24
PROVIDERS: ADMIT Obstetrics & Gynecology; ATTEND Obstetrics & Gynecology
DX: O62.9 Abnormality of forces of labor, unspecified (principal); O24.913 Unspecified diabetes mellitus in pregnancy, third trimester; O10.913 Unspecified pre-existing hypertension complicating pregnancy, third trimester; O99.213 Obesity complicating pregnancy, third trimester; E66.9 Obesity, unspecified; O99.513 Diseases of the respiratory system complicating pregnancy, third trimester; J45.909 Unspecified asthma, uncomplicated; Z87.51 Personal history of pre-term labor; Z90.49 Acquired absence of other specified parts of digestive tract; Z79.4 Long term (current) use of insulin; Z79.899 Other long term (current) drug therapy; Z88.0 Allergy status to penicillin; Z88.2 Allergy status to sulfonamides; Z88.1 Allergy status to other antibiotic agents; Z3A.30 30 weeks gestation of pregnancy; Z68.35 Body mass index [BMI] 35.0-35.9, adult
CPT/HCPCS: 59025; 81000; 96372; 96374; 96375; G0378 ×4; J0702; J2175; J2550; J3105 ×2; J7120 ×2

== ENCOUNTER → 2019-09-27 | Outpatient (CLI) | payer OTHER ==
[~2019-09-27] MED LIST changes: +CELESTONE SOLUSPAN IM ONE; +CELESTONE SOLUSPAN ONE
[2019-09-27 12:14] VITALS: BP 153/88
== END | disposition home or self-care (01) ==
LOC: OPTX 11:28
PROVIDERS: ATTEND Obstetrics & Gynecology
DX: O60.03 Preterm labor without delivery, third trimester (principal); O24.113 Pre-existing type 2 diabetes mellitus, in pregnancy, third trimester; O10.013 Pre-existing essential hypertension complicating pregnancy, third trimester; O99.213 Obesity complicating pregnancy, third trimester; Z68.35 Body mass index [BMI] 35.0-35.9, adult; Z90.49 Acquired absence of other specified parts of digestive tract; Z79.899 Other long term (current) drug therapy; Z79.4 Long term (current) use of insulin; Z3A.30 30 weeks gestation of pregnancy
CPT/HCPCS: 96372; J0702

== ENCOUNTER → 2019-10-07 | Outpatient (CLI) | payer OTHER ==
[~2019-10-07] MED LIST changes: -CELESTONE SOLUSPAN IM ONE; -CELESTONE SOLUSPAN ONE
--- NOTE | 2019-10-07 10:51 | DIREP ---
PROCEDURE:US BIOPHYSICAL PROFILE W/O NON STRESS COMPARISON:None. INDICATIONS:O24.112 PRE-EXISTING TYPE 2 DIABETES, SECOND TRIMESTER FINDINGS: Breathing:Normal, 2. Movement:Normal, 2. Tone:Normal, 2. Fluid:Normal, 2. Total: 8 , 8 Number:Flores. Position:Cephalic. Placenta:Anterior/Fundal. No previa. Amniotic Fluid Volume:Largest vertical pocket: 4.7 cm, (normal is 2-8 cm). Cervix:Measures 3.1 cm. Heart Rate:131 bpm. Biparietal Diameter:9.1 cm,(37 weeks, 0 days) Head Circumference:32.9 cm,(37 weeks, 3 days) Abdominal Circumference:35.2 cm,(39 weeks, 1 days) Femur Length:6.9 cm,(35 weeks, 2 days) Estimated Weight:3308 g, *(The percentiles for estimated weight and biometrics are extrapolated from the patients last menstrual period. Depending on the accuracy of the patients dates, the percentiles may or may not be accurate. Clinical correlation is necessary.) Ultrasound GA: 37 weeks, 2 days Ultrasound TABITHA: October 26, 2019 LMP: 02/24/2019 Clinical GA: 32 weeks, 1 days Clinical TABITHA: December 01, 2019 anatomic survey was not performed. No abnormalities are seen. Dates are discordant. CONCLUSION: 1. No 1st trimester ultrasound available to confirm dating by LMP. 2. Biophysical profile 12/13. 3. Viable intrauterine with biometrics corresponding to 37 week 2 day gestation, TABITHA October 26, 2019. Dating is discordant with LMP by dates. Dictated by: BASIA Physician on 10/07/2019 at 10:11 AM ac
== END | disposition home or self-care (01) ==
LOC: RAD 08:28
PROVIDERS: ATTEND Obstetrics & Gynecology
DX: O24.112 Pre-existing type 2 diabetes mellitus, in pregnancy, second trimester (principal); Z3A.37 37 weeks gestation of pregnancy
CPT/HCPCS: 76815; 76819

== ENCOUNTER → 2019-10-10 | Outpatient (CLI) | payer OTHER ==
[~2019-10-10] MED LIST changes: +BUTA1CAP60 PO; +HYDR250V5 IM; +INSU100V SQ
== END | disposition home or self-care (01) ==
LOC: OPTX 15:06
PROVIDERS: ATTEND Obstetrics & Gynecology
DX: O24.419 Gestational diabetes mellitus in pregnancy, unspecified control (principal); Z3A.32 32 weeks gestation of pregnancy
CPT/HCPCS: 59025

== ENCOUNTER 2019-10-14 12:03 | Inpatient (IN) | payer OTHER ==
[~2019-10-14] VITALS: Ht 172.7 cm; Wt 106.1 kg
[~2019-10-14 12:03] MED LIST changes: -BUTA1CAP60 PO; -HYDR250V5 IM; -INSU100V SQ
[2019-10-14 12:56] LABS: BASOPHIL # 0.1 10^3/uL (0.0-0.1); BASOPHIL % 0.6 % (0.0-0.2); EOSINOPHIL # 0.1 10^3/uL (0.0-0.2); EOSINOPHIL % 0.9 % (0.0-5.0); LYMPHOCYTES # 2.06 10^3/uL1 (1.0-4.8); LYMPHOCYTES % 20.1 % (24.0-44.0); MEAN CORP HGB 24.2 pg (26-34); MONOCYTES # 0.4 10^3/uL (0.3-0.8); MONOCYTES % 3.6 % (5.0-12.0); NEUTROPHIL # 7.7 10^3/uL (1.8-7.7); NEUTROPHILS % 74.6 % (41.0-85.0); PLATELET COUNT 239 10^3/uL (150-400)
[2019-10-14 13:16] LABS: CALCIUM 8.9 mg/dL (8.4-10.5)
[2019-10-14] MEDS ORDERED: FIORICET PO STA (13:23)
[2019-10-14] MEDS: ZOFRAN ODT SL PRN ×3 (13:26→23:08)
[2019-10-14] MEDS ORDERED: PHENERGAN PO PRN (17:30)
[2019-10-14] MEDS ORDERED: TYLENOL PO PRN (17:30)
[2019-10-14] MEDS ORDERED: ZOFRAN ODT SL PRN (17:30)
[2019-10-14] MEDS ORDERED: PHENERGAN IM PRN (17:30)
--- NOTE | 2019-10-14 17:35 | PCM.HP ---
OB-Chief Complaint and HPI Date/Diagnosis Date: Oct 14, 2019 Time: 17:25 Chief Complaint/History(PI) : 4 Para: 2 EDC: Dec 01, 2019 Reason for admission: observation, other (decreased FM) Past Family/Social History Patient History: Hypertension 32 MOTHER 33 FATHER No known health problems G8 SISTER 19 CHILD 19 CHILD Blood Type: AB- Rubella: not immune RPR/VDRL: Negative GBS Status: Unknown HBsAG: Negative Provider Note: 24-year-old at 33.1 presents to labor delivery as a direct admit from the office for decreased movement and nonreactive NST. Patient had a biophysical profile completed that returned 12/13. Patient currently is getting biweekly testing with biophysical profiles and NST secondary to insulin-dependent diabetes. Patient history complicated by contractions and recent BMZ dose 09/25 and 09/26. Patient cervical length on 10/07/2019 was 3.1 cm. Also patient EFW on that date was 3308 g. 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 She informed me that she started to feel bad on 10/12/2019 with complaints of frontal headache leading towards her shoulders and nausea and vomiting. Patient vomited today prior to visit. Patient did not look good at her office visit. Patient mention concerns about decreased movement over the weekend. Noted that movement was not the same and the baby felt sluggish. Patient blood pressure in office was 126/82. Her lab results in house were significant for an elevation in her protein creatinine ratio, which is now 0.39 and was previously 0.015. Platelets are currently 239 and they were previously 270 and 293. Patient denied right upper quadrant pain and vision disturbances. Although she feels a vaguely described upper abdominal discomfort that is causing nausea. EXAM- NAD, flushed EX-Full ROM, NT, trace edema, DTR + 1 bilateral ABD-obese, gravid, NST-Cat 1, reactive HEALY N/V A/ 24-year-old at 33.1 IDDM Decreased movement Interaction with PUI/COVID +individuals HX PTC & S/P BMZ 09/25 &09/26 Hx PTD BPP 12/15, NR NST P/ Admit to obs NST Q shift COVID testing Diabetic diet Up ad jesus Antiemetic prn Fioricet prn OB EXAM Physical Exam Vital Signs: Weight: 234 Vital Signs Date Time Temp Pulse Resp B/P (MAP) Pulse Ox O2 Delivery O2 Flow Rate FiO2 10/16/19 13:10 80 20 98 Room Air Allergies Coded Allergies Type Severity Reaction Last Updated Verified Sulfa (Sulfonamide Antibiotics) Allergy Severe VOMITING, SEVERE RASH 09/03/15 Yes Penicillins Allergy Unknown RASH, VOMITING 09/03/15 Yes cephalexin Allergy Unknown RASH, VOMITING 09/03/15 Yes Presentation: ABUNDIO Marshall DO Oct 14, 2019 17:35
[2019-10-14] MEDS ORDERED: INSU100I13 SQ ×2 (17:40)
[2019-10-14] MEDS ORDERED: INSU100V SQ ×2 (17:42→17:43)
[2019-10-14] MEDS ORDERED: HYDR250V5 IM (17:46)
[2019-10-14] MEDS ORDERED: HUMALOG ONE (18:03)
[2019-10-14] MEDS ORDERED: HUMALOG SQ ONE (18:30)
[2019-10-14] MEDS: FIORICET PO PRN (21:34)
[2019-10-14] MEDS: LANTUS SQ SCH (21:39)
[2019-10-15] MEDS ORDERED: HUMALOG SQ ONE ×3 (07:30→11:30)
[2019-10-15] MEDS: FIORICET PO PRN ×2 (08:31→22:45)
[2019-10-15] MEDS: ZOFRAN ODT SL PRN (08:31)
[2019-10-15] MEDS: LANTUS SQ SCH ×2 (08:39→21:30)
[2019-10-15] MEDS ORDERED: HUMALOG ONE (11:38)
--- NOTE | 2019-10-15 17:35 | PRM.PN ---
Assessment/Plan Assessment/Plan Patient currently resting in bed and recently finished her lunch. States that she is feeling nauseous and does not have an appetite. Describes a vague upper abdominal pain that is internal. Denies specific right upper quadrant pain. Patient states she ate crackers last night some with peanut butter and had broth from her soup today. Unsure if her taste has declined. Has no change in her smell. States that she is feeling movement but she still notes that it has been decreased. Denies vision changes. 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 I had an extended discussion with the patient and reviewed our conversation from yesterday concerning her decreased immune state, the potential for COVID positive, and decreased movement. There is a possibility that patient's anterior placenta is distorting her movements but I am unsure as patient was not specific about feeling a decrease in her movement over the weekend.COVID testing will be back within 24-72 hrs. Her NST today was reactive and overall the strip looked better yesterday evening. She continues to have irregular contractions but she has stated she is not uncomfortable. Her blood sugars are currently uncontrolled as her diet is minimal. She has not complained of a headache today. ABD-gravid, slight tenderness on RUQ, diffuse EX-Full ROM, NT Lungs-CTAB A/ 24-year-old at 33.1, HD # 2 IDDM Decreased movement Anterior placenta Interaction with PUI/COVID +individuals HX PTC & S/P BMZ 09/25 &09/26 Hx PTD BPP 12/15, NR NST (10/14/19) Nausea RUQ pain P/ Admit to obs NST Q shift COVID testing-pending Diabetic diet Up ad jesus Antiemetic prn Fioricet prn ABUNDIO ENNIS DO Oct 15, 2019 17:35
[2019-10-15] MEDS ORDERED: LANTUS SQ ONE (21:07)
[2019-10-15] MEDS ORDERED: FIORICET PO ONE (22:22)
[2019-10-16] MEDS ORDERED: HUMALOG SQ ONE ×2 (08:00→11:30)
[2019-10-16] MEDS ORDERED: LANTUS SQ ONE (08:22)
[2019-10-16] MEDS: LANTUS SQ SCH (08:33)
--- NOTE | 2019-10-16 11:58 | PRM.PN ---
Assessment/Plan Assessment/Plan HD #3-Antepartum Patient is lying laterally in bed and NST is going. Strip is reactive. [place] notes irregular contractions. Patient states she is feeling them occasionally. She has not eaten lunch and she ate minimal breakfast and dinner. States that she has no appetite and she has an upset stomach. States she felt like she has to have a bowel movement but is unable to go but denies constipation. She has only tolerated soup broth and a few bites of food while she has been in the hospital. States she does not have a taste for food. Last blood sugar was 75 therefore her insulin was held as she has not eaten. She states she is feeling movement. She will be discharged from home and follow-up in the hospital for nonstress test on 10/18/2019. She will follow-up in the office on Monday after her BPP. She is to bring her blood sugars into the office so we can evaluate. I instructed her to call the answering service over the weekend if she notes that they are extremely high or low. Again stressed that the goal is fasting 95 and below and 1 hour postprandial goal 135. Reviewed the importance of tight glucose control in this last few weeks prior to delivery. I informed her of the elevated protein creatinine ratio and the concerns for preeclampsia. Also reviewed anterior placenta which could make it difficult and/or dampen movements. Discussed doing kick counts after every meal. If she is having decreased movement she is to call the office or the answering service or return to triage for evaluation. Currently we are doing biophysical profiles and NST weekly. Discussed potential to do BPP and NST biweekly if she continues to note decreased movement.Patient expresses understanding. Nursing in room for discussion. EXAM- NAD FHT-reactive ABD-gravid LE-Full ROM, Trace edema A/ 24-year-old at 33.3, HD # 3 IDDM Decreased movement Anterior placenta Interaction with PUI/COVID +individuals HX PTC & S/P BMZ 09/25 &09/26 Hx PTD-Pennie weekly BPP 12/15, NR NST (10/14/19) Nausea/Epigastric pain Obesity Elevated protein/creat ratio P/ D/C to home NST Monday at hospital COVID testing-negative Diabetic diet * QID BS monitoring BPP/office visit 10/21/19 [facility] ABUNDIO STEVENS DO Oct 16, 2019 11:58
[2019-10-16 13:10] VITALS: BP 118/74
--- NOTE | 2019-10-16 14:19 | PRM.DC ---
OB Discharge Summary Discharge Summary Date of Arrival on Unit: Oct 14, 2019 Reason for Visit: decreased FM Discharge Date: Oct 16, 2019 Patient History: Hypertension 32 MOTHER 33 FATHER No known health problems G8 SISTER 19 CHILD 19 CHILD Procedure(s) & Date(s) none Vitals,Diet,Meds & Activity Diabetic diet, Activity as tolerated, no work restrictions, Kick counts TID Complications: No Complications Medications: Other (Continue current medications) Discharge Disposition: Stable Assessment & Plan A/ 24-year-old at 33.3, HD # 3 IDDM Decreased movement Anterior placenta Interaction with PUI/COVID +individuals HX PTC & S/P BMZ 09/25 &09/26 Hx PTD-Pennie weekly BPP 12/15, NR NST (10/14/19) Nausea/Epigastric pain Obesity Elevated protein/creat ratio P/ D/C to home NST Monday at hospital COVID testing-negative Diabetic diet * QID BS monitoring BPP/office visit 10/21/19 [facility] ABUNDIO STEVENS DO Oct 16, 2019 14:19
== END 2019-10-16 14:45 | disposition home or self-care (01) | DRG 832 ==
LOC: EEVIPCON 12:03 → OBSVTOIN 12:03 → INTOOBSV 12:03 → UNDOADMOB 12:03 → ATP 12:03
PROVIDERS: ADMIT Obstetrics & Gynecology; ATTEND Obstetrics & Gynecology
DX: O36.8330 Maternal care for abnormalities of the fetal heart rate or rhythm, third trimester, not applicable or unspecified (principal); O24.113 Pre-existing type 2 diabetes mellitus, in pregnancy, third trimester; O43.893 Other placental disorders, third trimester; O99.213 Obesity complicating pregnancy, third trimester; E11.9 Type 2 diabetes mellitus without complications; Z20.828 Contact with and (suspected) exposure to other viral communicable diseases; E66.9 Obesity, unspecified; O36.8130 Decreased fetal movements, third trimester, not applicable or unspecified; Z88.0 Allergy status to penicillin; Z79.4 Long term (current) use of insulin; Z88.2 Allergy status to sulfonamides; Z88.1 Allergy status to other antibiotic agents; Z68.33 Body mass index [BMI] 33.0-33.9, adult
CPT/HCPCS: 36415; 59025; 80053; 82570; 82948; 84156; 85025; 87635; 96372; G0378; J1815

== ENCOUNTER → 2019-10-14 | Outpatient (CLI) | payer OTHER ==
--- NOTE | 2019-10-14 12:44 | DIREP ---
PROCEDURE:US BIOPHYSICAL PROFILE W/O NON STRESS COMPARISON:[facility], , BIOPHYSICAL PROFILE W/O NON STRESS, 10/07/2019, 08:42 AM. INDICATIONS:O24.112 PRE-EXISTING TYPE 2 DIABETES FINDINGS: Breathing:Normal, 2. Movement:Normal, 2. Tone:Normal, 2. Fluid:Normal, 2. Total: 8 , 8 Number:Flores. Position:Cephalic. Placenta:Anterior. No previa. Amniotic Fluid Volume:Normal. Largest vertical pocket: 6.4 cm, (normal is 2-8 cm). Cervix:Measures 3.5 cm. Heart Rate:139 bpm. LMP: 02/24/2019 Clinical GA: 33 weeks, 1 days Clinical TABITHA: December 01, 2019 biometric evaluation and anatomic survey were not performed on today's exam. No gross abnormalities are seen on the provided images. CONCLUSION: Single live intrauterine in cephalic presentation. Biophysical profile is normal at 8/8. Dictated by: BASIA Physician on 10/14/2019 at 11:43 AM Read in [place] ac
== END | disposition home or self-care (01) ==
LOC: RAD 08:43
PROVIDERS: ATTEND Obstetrics & Gynecology
DX: O24.112 Pre-existing type 2 diabetes mellitus, in pregnancy, second trimester (principal); Z3A.33 33 weeks gestation of pregnancy
CPT/HCPCS: 76819

== ENCOUNTER 2019-10-18 11:57 | Observation (INO) | payer OTHER ==
[~2019-10-18] VITALS: Ht 165.1 cm; Wt 108.9 kg
[~2019-10-18 11:57] MED LIST changes: +HYDR250V5 IM; +INSU100V SQ
[2019-10-18 13:46] LABS: BASOPHIL # 0.1 10^3/uL (0.0-0.1); BASOPHIL % 0.6 % (0.0-0.2); EOSINOPHIL # 0.1 10^3/uL (0.0-0.2); LYMPHOCYTES # 1.78 10^3/uL1 (1.0-4.8); LYMPHOCYTES % 20.5 % (24.0-44.0); MEAN CORP HGB 24.5 pg (26-34); MONOCYTES # 0.4 10^3/uL (0.3-0.8); NEUTROPHIL # 6.4 10^3/uL (1.8-7.7); NEUTROPHILS % 73.4 % (41.0-85.0); PLATELET COUNT 198 10^3/uL (150-400); RED CELL DISTRIBUTION WIDTH 16.6 % (11.5-14.5)
[2019-10-18 14:03] LABS: CARBON DIOXIDE 20.4 mmol/L (20.0-32)
[2019-10-18 14:04] LABS: CALCIUM 8.5 mg/dL (8.4-10.5)
[2019-10-18] MEDS ORDERED: LIDOCAINE VISCOUS PO STA ×3 (15:32)
[2019-10-18] MEDS ORDERED: MYLANTA PO STA ×3 (15:32)
[2019-10-18] MEDS ORDERED: DONNATAL PO STA ×3 (15:32)
[2019-10-18] MEDS ORDERED: ZOFRAN ODT ONE (15:34)
[2019-10-18] MEDS ORDERED: BUTA1CAP60 PO (15:48)
--- NOTE | 2019-10-18 15:55 | PCM.HP ---
OB-Chief Complaint and HPI Date/Diagnosis Date: Oct 18, 2019 Time: 15:54 Admit Dx: (1) 33 weeks gestation of ICD Codes: Z3A.33 - 33 weeks gestation of SNOMED: 55460439 (2) Headache ICD Codes: R51 - Headache SNOMED: 74545810 (3) Proteinuria ICD Codes: R80.9 - Proteinuria, unspecified SNOMED: 67529582 (4) Right upper quadrant abdominal pain ICD Codes: R10.11 - Right upper quadrant pain SNOMED: 426474899 (5) Preexisting diabetes complicating in third trimester, antepartum ICD Codes: O24.313 - Unspecified pre-existing diabetes mellitus in , third trimester SNOMED: 67375365, 770558973, 387965172 Chief Complaint/History(PI) : 4 Para: 2 EDC: Dec 01, 2019 Reason for admission: other Past Family/Social History Patient History: Hypertension 32 MOTHER 33 FATHER No known health problems G8 SISTER 19 CHILD 19 CHILD Provider Note: Pt is a 24-year-old at 33.5 presenting initially to labor and delivery triage for her scheduled NST. NST is reactive. Stated that she is continuing to have headaches. Headache this morning was 4-5/10 and she took Fioricet prior to coming in around 10:00. Headache is getting slightly better throughout stay but around 4:00 it is starting to return. Patient describes headache as frontal. She also notes that her blood sugars have been elevated as she continues to have no appetite and nausea. Blood sugars have been uncontrolled as a result. Patient does not have her freestyle sebastian on. States that her toddler continues to remove it. Plans to have her bring a copy for hospital admission. Patient was concerned and she took her weight this morning and noted a 7 pound weight change since her office visit on Monday. We confirmed this weight gain as patient was admitted on Monday and discharge on Monday. Patient denies scotoma but states that she does have light sensitivity. Requesting light to be turned off. Patient looks flushed and does not look well. Cheeks are flushed. Exam reveals epigastric and right upper quadrant pain. Gravid abdomen. Active fetus can be heard on the monitor. Lower extremities negative for edema bilaterally. DTRs right 2+, left 1+. TOCO-occ ctx I put in a phone consult to [facility] to discuss patient case. I informed her that I suspect asymptomatic preeclampsia currently with patient's symptoms and labs. Patient has had a cholecystectomy and her LFTs have been stable and normal throughout her . M suggested a liver/GB sono and close monitoring. We discussed possibility of transfer to higher level care as well. Currently I will plan to watch the patient and obtained pending reports. I discussed my evaluation and exam with patient as well as my discussion with [facility]. Informed her there is no possibility for transfer to [place] for higher level NICU care, if necessary, for an early pending delivery and care. Patient is aware that we deliver 35 weeks and above. SHx-Cholecystectomy A/ 24-year-old at 33.5 IDDM RUQ pain HEALY HX PTC & S/P BMZ 09/25 &09/26 Hx PTD Proteinuria S>D P/ Admit to ante obs NST Q shift SS insulin Diabetic diet Up ad jesus Antiemetic prn Fioricet prn GI cocktail Tylenol prn Liver sono GBS cx OB EXAM Physical Exam Vital Signs: Weight: 240 Vital Signs Date Time Temp Pulse Resp B/P (MAP) Pulse Ox O2 Delivery O2 Flow Rate FiO2 10/18/19 15:42 Room Air Allergies Coded Allergies Type Severity Reaction Last Updated Verified Sulfa (Sulfonamide Antibiotics) Allergy Severe VOMITING, SEVERE RASH 09/03/15 Yes Penicillins Allergy Unknown RASH, VOMITING 09/03/15 Yes cephalexin Allergy Unknown RASH, VOMITING 09/03/15 Yes Presentation: ABUNDIO Marshall DO Oct 18, 2019 15:55
[2019-10-18] MEDS ORDERED: FIORICET PO PRN (16:00)
[2019-10-18] MEDS ORDERED: TYLENOL PO PRN ×2 (16:00)
[2019-10-18] MEDS ORDERED: HUMULIN R SQ SCH (16:00)
[2019-10-18] MEDS ORDERED: TYLENOL #3 PO PRN (16:00)
[2019-10-18] MEDS ORDERED: ZOFRAN ODT SL PRN (16:00)
[2019-10-18] MEDS ORDERED: PHENERGAN PO PRN (16:00)
[2019-10-18] MEDS ORDERED: PHENERGAN IM PRN (16:00)
--- NOTE | 2019-10-18 17:44 | DIREP ---
PROCEDURE:US ABDOMEN LIMITED (SINGLE ORGAN - QUAD) COMPARISON:[facility], CT, CT ABD/PELVIS W/ CONTRAST, 02/20/2018, 00:29 AM. [facility], US, US ABDOMEN LIMITED(SINGLE ORGAN-QUAD), 02/11/2016, 09:17 PM. INDICATIONS:RUQ pain s/p cholecystectomy. 33 weeks TECHNIQUE:High resolution sonographic examination was performed of the abdomen. FINDINGS: RIGHT KIDNEY:11.78 cm x 7.56 cm x 5.23 cm, 244.02 ml GALL BLADDER WALL:Post cholecystectomy CBD:4.62 mm PANCREAS:Normal. LIVER:Echogenic suggesting fatty infiltration. BILIARY:Post cholecystectomy. RIGHT KIDNEY:Mild prominence of the right renal collecting system. OTHER:Enlarged spleen measuring 20 cm.. CONCLUSION:Fatty liver. Post cholecystectomy. Mild prominence of the right renal collecting system. Dictated by: Justin Melchor MD on 10/18/2019 at 05:38 PM
--- NOTE | 2019-10-18 20:54 | PRM.PN ---
Assessment/Plan Assessment/Plan Kim is in the bed with NST/TOCO monitor on. Her Cong is at her bedside. Patient took the GI cocktail but got no symptomatic relief. Continues to feel right upper quadrant/epigastric pain along with nausea. Has taken Zofran and continues to have symptoms. Headache was not resolved with the Fioricet therefore patient was given Tylenol 3 currently headache is at a 5/10. This has been persistent since this morning. Patient states she overall does not feel well. Her notes that he has noted a decline in her health over the past week as well. Notes that she has not eaten much this week other than broth for meals secondary to anorexia. Kim is feeling regular movement and denies regular contraction pattern. History of contractions with this but no regular pattern or intensity noted currently. We discussed transfer of care to a higher level center secondary to unresolved symptoms and status. Possibility of fatty liver syndrome and/or atypical preeclampsia presentation reviewed with patient and her . Discussed that delivery would be option for symptom resolution and treatment of both. It would be best to transfer now, so that mom and baby would not be if her child needed NICU care post delivery. They are both understanding of this and accept the transfer of care. The transfer team was called and I was connected with [place] physician Dr. Caputo who accepted transfer of patient. The [place] ambulance transfer team was called to transfer patient to [place] and are currently in route. I informed the patient and her [place] COVID L&D restrictions after making a confirmation call with the unit. Patient is happy to have her and mother be with her during this time. All questions were answered to patient and satisfaction. Our nursing team has contacted [place] as well. Patient will be transferred once the team arrives. I informed patient that GBS culture will need to be completed at [place]. ABUNDIO ENNIS DO Oct 18, 2019 20:54
[2019-10-18] MEDS ORDERED: NS 250ML 250 ML IV ONE (21:25)
--- NOTE | 2019-10-18 21:57 | PRM.PN ---
Assessment/Plan Assessment/Plan As the team was doing paperwork and getting the patient ready for transport the patient's was in the room with her. He informs us that the patient was on the phone with her mother and told her mom that she felt like she was floating. Shortly thereafter the patient began to have a seizure and her called out to the staff. Myself and nursing went into the room and noted the event. Event lasted approximately 90 seconds. As the patient completed the seizure we moved her up into the bed as she was lying sideways in the bed as she was sitting up while she was speaking to her mother. We immediately started an IV in her left arm and a 4 g bolus of magnesium was started. We are currently running the magnesium at a maintenance dose of 2 g. The patient was also started on IV 1 g vancomycin for GBS prophylaxis. And she was given a dose of Celestone. During this time of preparation the the patient came out of her postictal state. She was able to articulate where she was who her was, the names of her children and positively identified myself. Discussed eclampsia with Cong and reviewed precautions and current medications. Questions were answered to patient and satisfaction.Patient and fetus currently stable. VS-150/78 postictal; 140/74,89,95% RA Lungs CTAB Heart RRR LE-Full ROM, neg clonus, DTR +2 bilateral A/ 24-year-old at 33.5 IDDM Eclampsia s/p seizure x 1 (10/18/19) HX PTC & S/P BMZ 09/25 &09/26 Hx PTD w/ G2 Proteinuria S>D Hx macrosomic infant G1 GBS unknown P/ Transfer to [facility] Magn[facility] 4 g bolus in-currently at 2 gram maintenance IV Vanco 1 g Plan for delivery ABUNDIO ENNIS DO Oct 18, 2019 21:57
[2019-10-18] MEDS ORDERED: VANCOMYCIN HCL 1 GM in NS 250ML 250 ML IV ONE (22:00)
[2019-10-18] MEDS ORDERED: MAGNESIUM SULF 4 G/100 ML BAG 100 ML IV SCH (22:00)
[2019-10-18] MEDS ORDERED: LACTATED RINGERS 1,000 ML IV SCH (22:00)
[2019-10-18] MEDS ORDERED: D5LR 1000ML 1,000 ML IV SCH (22:00)
[2019-10-18] MEDS ORDERED: LACTATED RINGERS IV SCH (22:00)
[2019-10-18] MEDS ORDERED: MAGNESIUM SULFATE 1,000 ML IV SCH (22:00)
[2019-10-18] MEDS ORDERED: CALCIUM GLUCONATE IV PRN (22:00)
[2019-10-18] MEDS ORDERED: CELESTONE SOLUSPAN IM ONE (22:00)
[2019-10-18 22:20] VITALS: BP 121/66
== END 2019-10-18 22:25 | disposition short-term general hospital (02) ==
LOC: OPTX 11:57 → EDSTATUS 15:21 → ATP 15:23 → EEVIPCON 15:23
PROVIDERS: ADMIT Obstetrics & Gynecology; ATTEND Obstetrics & Gynecology
DX: O24.313 Unspecified pre-existing diabetes mellitus in pregnancy, third trimester (principal); O26.893 Other specified pregnancy related conditions, third trimester; O99.89 Other specified diseases and conditions complicating pregnancy, childbirth and the puerperium; O12.13 Gestational proteinuria, third trimester; O15.9 Eclampsia, unspecified as to time period; R10.11 Right upper quadrant pain; R51 Headache; Z88.0 Allergy status to penicillin; Z79.4 Long term (current) use of insulin
CPT/HCPCS: 36415; 59025 ×2; 76705; 80053; 82570; 82948; 84156; 85025; 96365; 96368; 96372; G0378 ×7; J3370; J3490 ×2; J7050 ×2; J7120

== ENCOUNTER 2019-11-18 16:52 | Emergency (ER) | payer OTHER ==
[~2019-11-18] VITALS: Ht 170.2 cm; Wt 95.3 kg
[~2019-11-18 16:52] MED LIST changes: +BUTA1CAP60 PO
[2019-11-18 17:05] VITALS: BP 165/84
[2019-11-18] MEDS ORDERED: NS 1000ML 1,000 ML IV STA ×2 (17:35→19:13)
[2019-11-18] MEDS ORDERED: TYLENOL PO STA (17:35)
[2019-11-18] MEDS ORDERED: NS 1000ML 1,000 ML ONE ×2 (17:45→19:12)
[2019-11-18] MEDS ORDERED: TYLENOL PO ONE (17:46)
--- NOTE | 2019-11-18 17:46 | ER.PDOC ---
General Chief Complaint: Fever Stated Complaint: HEADACHE,FEVEER,BODY CHILLS Time seen by MD: 17:39 Source: patient Exam Limitations: no limitations History of Present Illness Initial Comments Fever, chills and headache since yesterday. Patient had early delivery because of Eclampsia 4 weeks ago. She also had BTL after delivery. 2 weeks ago, she started running a fever and had a seizure. She was admitted at [facility] where she had COVID testing and Lumbar puncture amongst other labs. She was administered antibiotics without any clear source of fever. Her fever eventually stopped and she was fever free for 48 hours. She was discharged home 4 days days ago and she started running fever again 2 days ago. No nausea or vomiting. Timing/Duration: gradual Severity: moderate Associated Symptoms: fever/chills Prior symptoms/Treatment: Similar symptoms previous, Recenly Seen, Treated by Doctor Allergies: Coded Allergies: Sulfa (Sulfonamide Antibiotics) (Verified Allergy, Severe, VOMITING, SEVERE RASH, 09/03/15) Penicillins (Verified Allergy, Unknown, RASH, VOMITING, 09/03/15) cephalexin (Verified Allergy, Unknown, RASH, VOMITING, 09/03/15) Home Meds Active Scripts Butalb/Acetaminophen/Caffeine (Fioricet 50-300-40 mg Capsule) 1 Each Capsule, 1 EACH PO Q6 for headache for 7 Days, #14 CAPSULE Prov:ABUNDIO ENNIS DO 10/18/19 Hydroxyprogesterone Caproate (LYNETTE) 250 Mg/1 Ml Vial, 275 MG IM Q7D for 14 Days, #1 VIAL Prov:ABUNDIO ENNIS DO 10/14/19 Insulin Lispro (HUMALOG) 100 Unit/1 Ml Vial, 14 UNIT SQ AC for 30 Days, #1 VIAL Prov:ABUNDIO ENNIS DO 20 Insulin Lispro (HUMALOG) 100 Unit/1 Ml Vial, 20 UNIT SQ AC for 30 Days, VIAL Prov:ABUNDIO ENNIS DO 20 Insulin Lispro (HUMALOG) 100 Unit/1 Ml Vial, 16 UNIT SQ ACB for 30 Days, #1 VIAL Prov:ABUNDIO ENNIS DO 20 Insulin Glargine,Hum.rec.anlog (LANTUS SOLOSTAR) 100 Unit/1 Ml Insuln.pen, 98 UNIT SQ HS for 30 Days, #1 UNITS Prov:ABUNDIO ENNIS DO 10/14/19 Insulin Glargine,Hum.rec.anlog (LANTUS SOLOSTAR) 100 Unit/1 Ml Insuln.pen, 75 UNITS SQ ACB, #15 MILLILITER 3 Refills Prov:ABUNDIO ENNIS DO 10/14/19 Reported Medications Iron Fum & Ps Cmp/Vit C & B (INTEGRA CAPSULE) 1 Each Capsule, 1 EACH PO DAILY24, CAPSULE 09/05/17 Constitutional: see HPI Respiratory: no symptoms reported Cardiovascular: no symptoms reported Gastrointestinal: abdominal pain Genitourinary: no symptoms reported Musculoskeletal: no symptoms reported All Other Systems: Reviewed and Negative Past Medical History Medical History: diabetes, other Surgical History: tubal Social History Alcohol Use: none Drug Use: none Physical Exam General Appearance: alert, no distress Throat: pharynx nml, airway nml Neck: nml inspection, supple Respiratory: no resp.distress, breath sounds nml Abdomen: no organomegaly, other (generalized tenderness and guarding, healing surgical incision for BTL.) CVS: reg rate & rhythm, heart sounds nml Skin: color nml, no rash, warm/dry Extremities: non-tender, nml ROM, no pedal edema NEURO/PSYCH: oriented x 3, CN's nml as tested, motor nml, sensation nml, mood/affect nml Results/Orders Results/Orders Orders - AKIKO HARTLEY MD Cbc With Auto Diff (11/18/19 17:35) Comprehensive Metabolic Panel (11/18/19 17:35) Blood Culture (11/18/19 17:35) Urinalysis (11/18/19 17:35) Lactic Acid(Ml) (11/18/19 17:35) Influenza A&B (11/18/19 17:35) Strep Screen (11/18/19 17:35) Ct Abd/Pel With Iv Contrast (11/18/19 17:35) 0.9 % Sodium Chloride (Ns 1000ml) (11/18/19 17:35) Acetaminophen (Tylenol) (11/18/19 17:35) 0.9 % Sodium Chloride (Ns 1000ml) (11/18/19 17:45) Acetaminophen (Tylenol) (11/18/19 17:46) 0.9 % Sodium Chloride (Ns 1000ml) (11/18/19 19:13) 0.9 % Sodium Chloride (Ns 1000ml) (11/18/19 19:12) Ceftriaxone Sodium (Rocephin) (11/18/19 20:26) Vital Signs Date Time Temp Pulse Resp B/P (MAP) Pulse Ox O2 Delivery O2 Flow Rate FiO2 11/18/19 17:05 102.4 125 20 165/84 (111) 100 Room Air 11/18/19 17:05 102.4 125 18 11/18/19 17:05 102.4 125 20 100 Administered Medications Medications (Trade) Dose Ordered Sig/Shamar Route PRN Reason Start Time Stop Time Status Last Admin Dose Admin Acetaminophen (Tylenol) 1,000 mg STAT STAT PO 11/18/19 17:35 11/18/19 17:39 DC 11/18/19 17:50 1,000 MG Sodium Chloride 1,000 ml @ 1,200 mls/hr Q50M STAT IV 11/18/19 17:35 11/18/19 18:24 DC 11/18/19 17:50 1,200 MLS/HR Sodium Chloride 1,000 ml @ 1,200 mls/hr Q50M STAT IV 11/18/19 19:13 11/18/19 20:02 DC 11/18/19 19:15 1,200 MLS/HR Laboratory Tests Test 11/18/19 17:35 11/18/19 17:50 11/18/19 19:10 White Blood Count 14.1 10^3/uL (4.5-11.0) H Red Blood Count 4.86 10^6/uL (4.00-5.20) Hemoglobin 11.7 g/dL (12.0-15.0) L Hematocrit 37.1 % (36.0-46.0) Mean Corpuscular Volume 76.3 fL (78-100) L Mean Corpuscular Hemoglobin 24.1 pg (26-34) L Mean Corpuscular Hemoglobin Concent 31.5 g/dL (33-36.5) L Red Cell Distribution Width 16.3 % (11.5-14.5) H Platelet Count 360 10^3/uL (150-400) Mean Platelet Volume 12.0 fL (7.8-11.0) H Neutrophils (%) (Auto) 86.1 % (41.0-85.0) H Lymphocytes (%) (Auto) 8.0 % (24.0-44.0) L Monocytes (%) (Auto) 3.7 % (5.0-12.0) L Neutrophils # (Auto) 12.2 10^3/uL (1.8-7.7) H Lymphocytes # (Auto) 1.13 10^3/uL1 (1.0-4.8) Monocytes # (Auto) 0.5 10^3/uL (0.3-0.8) Absolute Immature Granulocyte (auto 0.12 10^3 u/L (0-2) Absolute Eosinophils (auto) 0.2 10^3/uL (0.0-0.2) Immature Granulocytes % 0.90 % (0.00-0.50) H Eosinophils % 1.1 % (0.0-5.0) Basophils % 0.2 % (0.0-0.2) Basophils # 0.0 10^3/uL (0.0-0.1) Sodium Level 139 mmol/L (132-145) Potassium Level 3.9 mmol/L (3.6-5.2) Chloride Level 101.0 mmol/L (96-109) Carbon Dioxide Level 23.8 mmol/L (20.0-32) Anion Gap 18.1 Blood Urea Nitrogen 11 mg/dL (7-18) Creatinine 0.88 mg/dL (0.59-1.40) Estimated GFR () 94.0 (>/=60) Est GFR (CKD-EPI)(Non-Afr [place]) 77.7 (>/=60) BUN/Creatinine Ratio 12.0 Glucose Level 121 mg/dL (70-110) H Calcium Level 9.6 mg/dL (8.4-10.5) Total Bilirubin 0.5 mg/dL (0.2-1.0) Aspartate Amino Transferase (AST) 24 U/L (0-35) Alanine Aminotransferase (ALT) 34 U/L (12-78) Alkaline Phosphatase 129 U/L (50-136) Total Protein 8.6 g/dL (6.4-8.2) H Albumin 3.6 g/dL (3.4-5.0) Globulin 5.0 Lactic Acid Level 2.2 mmol/L (0.5-1.9) *H Influenza Type A Antigen NEGATIVE (NEG) Influenza B Immunofluorescence NEGATIVE (NEG) Group A Streptococcus Screen NEGATIVE (NEGATIVE) Urine Collection Type VOID Urine Color YELLOW (YELLOW) Urine Appearance CLEAR (CLEAR) Urine Bilirubin NEGATIVE MG/DL (NEGATIVE) Urine Ketones NEGATIVE (NEGATIVE) Urine Specific [place] 1.005 (1.005-1.035) Urine pH 5.0 (5.0-6.0) Urine Protein NEGATIVE (NEGATIVE) Urine Urobilinogen NEGATIVE (NEGATIVE) Urine Nitrate NEGATIVE (NEGATIVE) Urine Leukocyte Esterase NEGATIVE (NEGATIVE) Urine Blood 10 TR (NEGATIVE) H Urine RBC 0-2 RBC/HPF (NONE SEEN) Urine WBC 2-5 WBC/HPF (0-2) Urine Squamous Epithelial Cells RARE #/HPF (FEW) Urine Bacteria RARE (NONE SEEN) Urine Glucose NORMAL (NEGATIVE) Progress Progress CT abdomen/pelvis: There are findings consistent with mild diffuse steatosis of the liver and hepatosplenomegaly. No acute abnormalities are seen in the abdomen and pelvis. Postcholecystectomy changes are again seen. Discussed with the Hospitalist who told me to transfer patient back to [facility] since she got discharged from [facility] 4 days ago for same symptoms. He feels that patient will need to be seen by and Infectious disease Doctor. Offered patient to be transported by EMS but she declined and prefers her to drive her there. She received 2L IV fluids and Rocephin. Departure Time of Disposition: 20:32 Disposition: 02 XFER T-[facility] Impression: Primary Impression: SIRS (systemic inflammatory response syndrome) Additional Impression: FUO (fever of unknown origin) Condition: Stable Referrals: VANE JUÁREZ MD (PCP) PRIMARY CARE PROVIDER Comments Transfer to [facility] ED for Dr. Fly Klein. Duration or Time Spent with Pa: 60 min Problem Qualifiers AKIKO HARTLEY MD Nov 18, 2019 17:46
[2019-11-18 18:01] LABS: BASOPHIL % 0.2 % (0.0-0.2); EOSINOPHIL # 0.2 10^3/uL (0.0-0.2); EOSINOPHIL % 1.1 % (0.0-5.0); LYMPHOCYTES # 1.13 10^3/uL1 (1.0-4.8); MEAN CORP HGB 24.1 pg (26-34); MONOCYTES # 0.5 10^3/uL (0.3-0.8); MONOCYTES % 3.7 % (5.0-12.0); NEUTROPHIL # 12.2 10^3/uL (1.8-7.7); NEUTROPHILS % 86.1 % (41.0-85.0); PLATELET COUNT 360 10^3/uL (150-400); RED CELL DISTRIBUTION WIDTH 16.3 % (11.5-14.5)
--- NOTE | 2019-11-18 18:08 | NUR ---
UA PT UNABLE TO GIVE A URINE SAMPLE AT THIS TIME.
[2019-11-18 18:16] LABS: CALCIUM 9.6 mg/dL (8.4-10.5); CARBON DIOXIDE 23.8 mmol/L (20.0-32)
--- NOTE | 2019-11-18 18:23 | NUR ---
LACTIC DR WHARTON NOTIFIED OF LACTIC OF 2.2
--- NOTE | 2019-11-18 18:54 | DIREP ---
PROCEDURE:CT ABDOMEN/PELVIS W/ CONTRAST COMPARISON:[facility], CT, CT ABD/PELVIS W/ CONTRAST, 02/20/2018, 00:29 AM. INDICATIONS:pain and fever post op TECHNIQUE:Axial images were created through the abdomen and pelvis with non-ionic intravenous contrast material. No oral contrast was administered. Sagittal and coronal reconstructions were performed from source images. FINDINGS: LUNG BASES:Normal. No visible pulmonary or pleural disease. LIVER:Mild diffuse decreased attenuation is seen throughout the liver which is enlarged. BILIARY:Postcholecystectomy changes are again seen. PANCREAS:Normal. No lesion, fluid collection, ductal dilatation, or atrophy. SPLEEN:The spleen remains enlarged measuring 19.2 cm in length. ADRENALS:Normal. No mass or enlargement. URINARY TRACT:Normal. No focal lesions or hydronephrosis. AORTA/VASCULAR:Normal. No aneurysm. RETROPERITONEUM:Normal. No mass or adenopathy. BOWEL/MESENTERY:Normal. There is no intestinal obstruction, free fluid, free air or mesenteric inflammatory changes. Normal appendix. ABDOMINAL WALL:Normal. No mass or hernia. PELVIC ORGANS:Surgical clips are seen in both sides of the pelvis consistent with tubal ligation clips. The uterus is normal in size and density. No free fluid is seen. BONES:Normal for age. No bony lesion or acute fracture. OTHER:Negative. CONCLUSION:There are findings consistent with mild diffuse steatosis of the liver and hepatosplenomegaly. No acute abnormalities are seen in the abdomen and pelvis. Postcholecystectomy changes are again seen. Dictated by: Alex Balderas M.D. on 11/18/2019 at 06:45 PM
--- NOTE | 2019-11-18 19:10 | NUR ---
ALFONZO OBTAINED. SPECIMEN TO LAB.
--- NOTE | 2019-11-18 19:14 | NUR ---
CLEAN CATCH URINE COLLECTED AND TAKEN TO LAB. NEW ORDER FOR 2ND LITER OF NS AFTER 1 ST LITER COMPLETED.
--- NOTE | 2019-11-18 19:20 | NUR ---
#2 LITER OF NS HUNG AND INFUSING WITHOUT DIFFICULTY.
[2019-11-18 19:35] LABS: APPEARANCE,URINE CLEAR (CLEAR); BILIRUBIN,URINE NEGATIVE (NEGATIVE); UA COLOR YELLOW (YELLOW)
[2019-11-18 19:36] LABS: UROBILINOGEN,URINE NEGATIVE (NEGATIVE)
[2019-11-18] MEDS ORDERED: ROCEPHIN 1 GM in NS 100ML 100 ML IV STA (20:26)
[2019-11-18] MEDS ORDERED: NS 100ML 100 ML IV ONE (20:31)
[2019-11-18] MEDS ORDERED: ROCEPHIN ONE (20:31)
== END 2019-11-18 21:10 | disposition short-term general hospital (02) ==
LOC: ER 16:52
DX: R65.10 Systemic inflammatory response syndrome (SIRS) of non-infectious origin without acute organ dysfunction (principal); R50.9 Fever, unspecified; E11.9 Type 2 diabetes mellitus without complications; Z98.51 Tubal ligation status; Z88.0 Allergy status to penicillin; Z88.1 Allergy status to other antibiotic agents; Z88.2 Allergy status to sulfonamides; Z79.899 Other long term (current) drug therapy
CPT/HCPCS: 36415; 74177; 80053; 81000; 83605 ×2; 85025; 87040 ×2; 87070; 87804 ×2; 87880; 96365; 99285; A9150; J0696 ×2; J7030 ×2; J7050 ×2; Q9965

== ENCOUNTER 2019-11-24 18:26 | Inpatient (IN) | payer OTHER ==
[~2019-11-24] VITALS: Ht 170.2 cm; Wt 99.4 kg
[2019-11-24 18:45] VITALS: BP 127/74
[2019-11-24] MEDS ORDERED: NS 1000ML 1,000 ML IV ONE (19:29)
[2019-11-24 19:55] LABS: BASOPHIL # 0.1 10^3/uL (0.0-0.1); BASOPHIL % 0.6 % (0.0-0.2); EOSINOPHIL # 0.3 10^3/uL (0.0-0.2); EOSINOPHIL % 1.9 % (0.0-5.0); LYMPHOCYTES % 4.9 % (24.0-44.0); MONOCYTES # 0.6 10^3/uL (0.3-0.8); MONOCYTES % 4.5 % (5.0-12.0); NEUTROPHIL # 12.3 10^3/uL (1.8-7.7); NEUTROPHILS % 86.6 % (41.0-85.0); PLATELET COUNT 281 10^3/uL (150-400); RED CELL DISTRIBUTION WIDTH 16.3 % (11.5-14.5)
--- NOTE | 2019-11-24 20:15 | NUR ---
CRITICAL LAB JONI IN LAB CALLED TO REPORT CRITICAL DDIMER 1.06. REPORTED TO ALYSA MICHAEL AND DR JUÁREZ. NO NEW ORDERS AT THIS TIME.
--- NOTE | 2019-11-24 20:20 | PCM.HP ---
HISTORY & PHYSICAL HISTORY & PHYSICAL DATE: November 24, 2019 Patient is admitted as an inpatient to [facility] ADMITTING DIAGNOSES: Fever and sepsis CHIEF COMPLAINT: Fever and chills HISTORY OF PRESENT ILLNESS: 24-year-old female who had a vaginal delivery 2 weeks ago in [place]. She had a premature delivery and her baby stayed in NICU for more than a week. When she came home with her baby she started to have fever and seizures and was brought back to [facility] where she was admitted for 5 to 6 days for IV antibiotics. She had a spinal tap that essentially grew negative results and she was on vancomycin and meropenem for 5 to 6 days in [place]. She was sent home on no antibiotics after that since her cultures were all negative and was supposed to follow-up with me. 3 days after discharge she started to have fevers and chills again so she came into my office where she was sent to the ER and she was transferred back to [place] for a sepsis picture. She was again started on IV antibiotics at the time and had a wound infection around her tubal site as well as mastitis. She was given IV antibiotics and she had been fever free for 24 hours and was sent home 2 days ago. She was sent home on p.o. Zyvox at the time and she is been taking it and now she started to spike fever up to 102 and having chills and short of breath and not feeling well again. She does have headache with some photophobia but does not report a stiff neck. She does report nausea but without vomiting and no diarrhea. She states that she does not have any significant deep abdominal pains and the only pain she has is around the incision site of where the tubal was. She denies any urinary symptoms at this time. She denies any recent travel and really she has not been outside the house and she was home. There are no sick contacts around her. Her family is well. 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 She denies any mental status changes or chest pain or sore throat at this time. She does report short of breath when she has fever and she has a chills. I asked her about whether or not she felt her heart racing and she states that when she has the fevers she feels that it is elevated at that time. She denies any hemoptysis, no hematemesis, no melena, no hematochezia. She has been doing her own wound care to her tubal ligation site per recommendations from the wound ca re team in [place]. PAST MEDICAL HISTORY: Type 2 diabetes mellitus on insulin PAST SURGICAL HISTORY: Hysteroscope, BTL, cholecystectomy ALLERGIES: Penicillin, sulfa, cephalexin MEDICATIONS: I have reviewed [facility] SOCIAL HISTORY: No smoking, no drugs, no alcohol FAMILY HISTORY: Noncontributory for this admission PHYSICAL EXAMINATION: VITAL SIGNS: Temperature currently is 99.6, heart rate is 90, respirations 18 HEENT: Oropharynx is clear, no petechia, no maxillary sinus tenderness, no congestion NECK: Supple, no JVD, no bruits HEART: S1 and S2 audible, heart rate is about 90 on my exam LUNGS: Mildly diminished breath sounds at the bases ABDOMEN: Bowel sounds are present, soft abdomen, tubal ligation site looks okay without any purulence noted at this time and no red streaks around it EXTREMITIES: No pitting edema, no cyanosis, warm skin, 2+ distal pulses noted LABORATORY DATA: Pending ASSESSMENT: 24-year-old female with recurrent fever and chills with a sepsis picture. The source of infection is unknown at this time. PLAN: I will give her a fluid bolus and follow-up with the labs. I will go ahe ad and empirically start her on IV antibiotics at this point to cover her and get the records from [place] to review and go from there. VANE JUÁREZ MD Nov 24, 2019 20:19
[2019-11-24 20:23] LABS: BASOPHIL 2 % (0-2); EOSINOPHIL 1 % (1-4); LYMPHOCYTE 3 % (25-36); MONOCYTE 2 % (3-9); SEGMENTED NEUTROPHILS 92 % (31-76)
[2019-11-24 20:24] LABS: MICROCYTOSIS 1+ (NEGATIVE)
--- NOTE | 2019-11-24 20:24 | PCM.EKG ---
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
[2019-11-24 20:26] LABS: ALANINE AMINOTRANSFERASE(ML) 30 U/L (12-78); ALKALINE PHOSPHATASE 114 U/L (50-136); ASPARTATE AMINO TRANSFERASE 26 U/L (0-35); CALCIUM 8.6 mg/dL (8.4-10.5); GLUCOSE 149 mg/dL (70-110)
[2019-11-24] MEDS ORDERED: GENTAMICIN SULFATE IV SCH (20:30)
[2019-11-24] MEDS: GENTAMICIN SULFATE IV SCH (20:30)
[2019-11-24] MEDS: NS IV SCH (20:30)
--- NOTE | 2019-11-24 20:30 | NUR ---
CRITICAL LAB JONI IN LAB CALLED TO REPORT CRITICAL PROCALCITONIN 1.26. REPORTED TO ALYSA MICHAEL AND DR JUÁREZ. NO NEW ORDERS AT THIS ASHLEY
--- NOTE | 2019-11-24 20:40 | NUR ---
LAB ORDERS DR JUÁREZ ORDERED PERIPHERAL SMEAR TO PATHOLOGY FOR REVIEW
[2019-11-24] MEDS ORDERED: INSU100V SQ (20:49)
[2019-11-24] MEDS ORDERED: LEVE500T54 PO (20:49)
[2019-11-24] MEDS ORDERED: INSU100I13 SQ (20:49)
[2019-11-24] MEDS ORDERED: VIBRAMYCIN 100 MG in NS 100ML 100 ML IV SCH (21:00)
[2019-11-24] MEDS ORDERED: VANCOMYCIN HCL 1.5 GM in NS 250ML 300 ML IV SCH (21:00)
[2019-11-24] MEDS ORDERED: NS 100ML 100 ML IV ONE (22:16)
[2019-11-24] MEDS ORDERED: VANCOMYCIN HCL 1 GM ONE (22:41)
[2019-11-24] MEDS ORDERED: NS 250ML 250 ML IV ONE (22:41)
--- NOTE | 2019-11-24 23:55 | DIREP ---
PROCEDURE:CHEST 2 VIEWS COMPARISON:[facility], CT, CT ABD/PELVIS W/ CONTRAST, 11/18/2019, 06:07 PM. INDICATIONS:Short of breath FINDINGS: LUNGS/PLEURA:No significant pulmonary parenchymal abnormalities. No effusions. VASCULATURE:Normal. Unremarkable pulmonary vasculature. CARDIAC:Normal. No cardiac silhouette abnormality or cardiomegaly. MEDIASTINUM:Normal. No visible mass or adenopathy. BONES:Normal. No fracture or visible bony lesion. OTHER:Negative. CONCLUSION:Normal examination. Dictated by: Keven Abbott M.D. on 11/24/2019 at 11:53 PM
[2019-11-25 00:15] VITALS: BP 120/72
[2019-11-25] MEDS ORDERED: NS 500ML 500 ML IV ONE (00:31)
[2019-11-25] MEDS ORDERED: NS 100ML 100 ML IV ONE (01:37)
[2019-11-25 04:11] VITALS: BP 128/86
[2019-11-25] MEDS: TYLENOL PO PRN ×2 (07:36→23:58)
[2019-11-25] MEDS ORDERED: TORADOL ONE (07:48)
[2019-11-25] MEDS: TORADOL IV PRN ×2 (07:53→15:04)
[2019-11-25] MEDS ORDERED: NS 1000ML 1,000 ML IV ONE (08:00)
[2019-11-25] MEDS: KEPPRA PO SCH ×2 (08:28→21:21)
[2019-11-25] MEDS: HUMALOG SQ SCH ×3 (11:30→21:18)
--- NOTE | 2019-11-25 11:32 | NUR ---
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
[2019-11-25 11:46] VITALS: BP 125/76
[2019-11-25 11:57] LABS: APPEARANCE,URINE CLEAR (CLEAR); BILIRUBIN,URINE NEGATIVE (NEGATIVE); UA COLOR YELLOW (YELLOW); UROBILINOGEN,URINE NEGATIVE (NEGATIVE)
[2019-11-25] MEDS: VANCOMYCIN HCL 1.5 GM in NS 250ML 300 ML IV SCH ×2 (12:09→23:45)
--- NOTE | 2019-11-25 12:45 | NUR ---
DISCHARGE PLAN CASE MANAGEMENT SPOKE WITH PT AT [facility] CONCERNING DISCHARGE PLAN AND NEEDS. LIVES AT HOME WITH SPOUSE AND CHILDREN. INDEPENDENT OF ADLS. 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 HAS DME INCLUDING GLUCOMETER AND DIABETIC SUPPLIES. IS CURRENTLY DOING WOUND CARE AT HOME TO ABD INCISION SITE FROM TUBIAL LIGATION. CM SPOKE WITH PT ABOUT OUTPATIENT WOUND CARE AT [facility] DUE TO HAVING [employer] INSURANCE. AT THIS TIME, PT FEELS LIKE WOUND IS "GETTING BETTER". CONTACT INFORMATION LEFT AT BEDSIDE IF NEED FURTHER ASSISTANCE. PCP IS DR. JUÁREZ. DISCHARGE PLAN IS TO DISCHARGE HOME WITH FAMILY AND CONTINUE SELF CARE. CM WILL CONTINUE TO FOLLOW FOR DISCHARGE NEEDS.
--- NOTE | 2019-11-25 13:18 | NUR ---
PATIENT OFF UNIT FOR MRI AT THIS TIME.
[2019-11-25] MEDS: VIBRAMYCIN 100 MG in NS 100ML 100 ML IV SCH (15:04)
[2019-11-25] MEDS ORDERED: NS 250ML 250 ML IV ONE (15:20)
[2019-11-25 16:26] VITALS: BP 137/82
--- NOTE | 2019-11-25 17:40 | NUR ---
CONTACTED TO LET HIM KNOW OF 350 OUTPUT FOR 12 HOURS. RECEIVED NEW ORDERS FOR 20MG IV LASIX IV ONE TIME STAT TO BE GIVEN NOW. WILL CONTINUE TO MONITOR.
[2019-11-25] MEDS ORDERED: LASIX IV STA (17:49)
[2019-11-25 19:15] VITALS: BP 128/77
[2019-11-25] MEDS: NS IV SCH ×2 (20:07→22:00)
[2019-11-25] MEDS: GENTAMICIN SULFATE IV SCH ×2 (20:07→22:00)
--- NOTE | 2019-11-25 21:05 | PRM.PN ---
Subjective Subjective Date: Nov 25, 2019 Time: 21:00 Subjective Pt with some HEALY but no chills or fevers today; eating some; denies any CP or abd pains; has some SOB Patient History: Hypertension 32 MOTHER 33 FATHER No known health problems G8 SISTER 19 CHILD 19 CHILD VTE VTE Risk Total Score: 2 VTE Risk Score VTE Risk: Score 0-1 = Low Risk (Aggressive mobilization; early ambulation; no VTE prophylaxis required) Score 2: Moderate Risk (Intermittent/Pneumatic Compression Device OR Lovenox/Heparin/Coumadin) Score 3-4: High Risk (Intermittent/Pneumatic Compression Device AND Lovenox/Heparin/Coumadin) Score > or =5: Highest Risk (Intermittent/Pneumatic Compression Device AND Lovenox/Heparin/Coumadin) Antico:Hep/LMWH/Coum/Xarelto: No Mechanical device ordered: No Review of Systems Constitutional: Malaise; No: Fever, Chills, Sweats Eyes: No: Vision change, Conjunctivae inflammation ENT: No: Ear pain, Ear discharge, Nose pain Respiratory: Shortness of breath; No: Cough, Dry Cardiovascular: No: Chest Pain, Palpitations, Orthopnea Gastrointestinal: No: Nausea, Abdominal Pain, Diarrhea Genitourinary: No Dysuria, No Frequency, No Incontinence, No Hematuria Musculoskeletal: No: neck pain, shoulder pain, arm pain Skin: No: Lesions, Jaundice, Bruising Neurological: No: Numbness, Incoordination, Change in speech, Confusion, Seizures Allergies: Coded Allergies: Sulfa (Sulfonamide Antibiotics) (Verified Allergy, Severe, VOMITING, SEVERE RASH, 09/03/15) Penicillins (Verified Allergy, Unknown, RASH, VOMITING, 09/03/15) cephalexin (Verified Allergy, Unknown, RASH, VOMITING, 09/03/15) Scheduled Insulin Glargine,Hum.rec.anlog (Lantus Solostar), 75 UNITS SQ ACB Insulin Lispro (Humalog), 16 UNIT SQ ACB Levetiracetam (Keppra), 1 TAB PO BID, (Reported) Discontinued Medications Butalb/Acetaminophen/Caffeine (Fioricet 50-300-40 mg Capsule), 1 EACH PO Q6 Discontinued Reason: No Longer Taking Hydroxyprogesterone Caproate (Pennie), 275 MG IM Q7D Discontinued Reason: No Longer Taking Insulin Glargine,Hum.rec.anlog (Lantus Solostar), 98 UNIT SQ HS Discontinued Reason: No Longer Taking Insulin Lispro (Humalog), 20 UNIT SQ AC Discontinued Reason: No Longer Taking Insulin Lispro (Humalog), 14 UNIT SQ AC Discontinued Reason: No Longer Taking Iron Fum & Ps Cmp/Vit C & B (Integra Capsule), 1 EACH PO DAILY24, (Reported) Discontinued Reason: No Longer Taking Objective Vitals and I/O Vital Sign - Last 24 Hours 11/24/19 11/25/19 11/25/19 11/25/19 21:05 00:15 04:11 11:46 Temp 98.1 98.5 98.3 Pulse 82 81 74 Resp 16 16 18 B/P (MAP) 120/72 (88) 128/86 (100) 125/76 (92) Pulse Ox 94 98 94 O2 Delivery Room Air Room Air Room Air Room Air 11/25/19 11/25/19 11/25/19 16:26 16:39 17:38 Temp 97.6 Pulse 63 Resp 18 B/P (MAP) 137/82 (100) Pulse Ox 94 O2 Delivery Room Air Room Air Room Air Intake and Output 11/25/19 06:59 Intake Total 1350 ml Output Total 600 ml Balance 750 ml General: Alert, Oriented X3, Cooperative, No acute distress HEENT: Atraumatic, PERRLA, EOMI, Mucous membr. moist/pink Neck: Supple, No JVD Lungs: Clear to auscultation, Normal air movement Heart: Normal S1, Normal S2 Abdomen: Normal bowel sounds, Soft Extremities: No clubbing, No cyanosis Neuro: Normal speech Psych/Mental Status: Mental status NL, Mood NL All Results(Lab/Rad) Current Medications Medications (Trade) Dose Ordered Sig/Shamar Route PRN Reason Start Time Stop Time Status Last Admin Dose Admin Sodium Chloride 1,000 ml @ 1,000 mls/hr Q1H ONCE IV 11/24/19 19:29 11/25/19 01:32 DC 11/24/19 20:36 Acetaminophen (Tylenol) 650 mg Q6HR PRN PO FEVER 11/24/19 19:30 12/24/19 19:29 11/25/19 07:36 Doxycycline Hyclate 100 mg/ Sodium Chloride 100 ml @ 100 mls/hr Q12HR IV 11/24/19 21:00 11/25/19 08:42 DC 11/25/19 01:59 Vancomycin HCl 1.5 gm/Sodium Chloride 300 ml @ 175 mls/hr Q12HR IV 11/24/19 21:00 11/25/19 08:36 DC 11/25/19 00:12 Gentamicin Sulfate (Gentamicin Sulfate) 120 mg Q24HRS IV 11/24/19 20:30 11/25/19 08:29 DC 11/24/19 22:24 Sodium Chloride 100 ml @ ud STK-MED ONCE IV 11/24/19 22:16 11/24/19 22:18 DC Vancomycin HCl 1 ml @ ud STK-MED ONCE .ROUTE 11/24/19 22:41 11/24/19 22:42 DC Sodium Chloride 250 ml @ ud STK-MED ONCE IV 11/24/19 22:41 11/24/19 22:44 DC Sodium Chloride 500 ml @ ud STK-MED ONCE IV 11/25/19 00:31 11/25/19 00:33 DC Sodium Chloride 100 ml @ ud STK-MED ONCE IV 11/25/19 01:37 11/25/19 01:39 DC Ketorolac Tromethamine (Toradol) 30 mg Q6H PRN IV PAIN 4 - 6 11/25/19 08:00 11/30/19 07:59 11/25/19 15:04 Ketorolac Tromethamine (Toradol) 30 mg STK-MED ONCE .ROUTE 11/25/19 07:48 11/25/19 07:50 DC Insulin Human Lispro (Humalog) Humalog. Give when food is... ACHS SQ 11/25/19 11:30 12/25/19 11:29 Sodium Chloride 1,000 ml @ 500 mls/hr Q2H ONCE IV 11/25/19 08:00 11/25/19 09:59 DC 11/25/19 08:00 Levetiracetam (Keppra) 500 mg BID PO 11/25/19 09:00 12/25/19 08:59 11/25/19 08:28 Gentamicin Sulfate 120 mg/ Sodium Chloride 103 ml @ 100 mls/hr Q24HRS IV 11/24/19 20:30 12/24/19 20:29 11/25/19 20:07 Vancomycin HCl 1.5 gm/Sodium Chloride 300 ml @ 175 mls/hr Q12H IV 11/25/19 12:00 12/25/19 11:59 11/25/19 12:09 Doxycycline Hyclate 100 mg/ Sodium Chloride 100 ml @ 100 mls/hr Q12H IV 11/25/19 14:00 12/25/19 13:59 11/25/19 15:04 Sodium Chloride 250 ml @ ud STK-MED ONCE IV 11/25/19 15:20 11/25/19 15:23 DC Furosemide (Lasix) 20 mg STAT STAT IV 11/25/19 17:49 11/25/19 17:50 UNV 11/25/19 17:55 Course Sepsis Screening Results: Posi: NEGATIVE Sepsis Qualifier/Stage: NO DEFINITE RISK Duration or Total Time Spent w: 60 min Vitals & review Data Vital Sign - Last 24 Hours 11/24/19 11/25/19 11/25/19 11/25/19 21:05 00:15 04:11 11:46 Temp 98.1 98.5 98.3 Pulse 82 81 74 Resp 16 16 18 B/P (MAP) 120/72 (88) 128/86 (100) 125/76 (92) Pulse Ox 94 98 94 O2 Delivery Room Air Room Air Room Air Room Air 11/25/19 11/25/19 11/25/19 16:26 16:39 17:38 Temp 97.6 Pulse 63 Resp 18 B/P (MAP) 137/82 (100) Pulse Ox 94 O2 Delivery Room Air Room Air Room Air Intake and Output 11/25/19 06:59 Intake Total 1350 ml Output Total 600 ml Balance 750 ml Laboratory Tests Test 11/24/19 11:20 11/24/19 19:43 11/24/19 20:12 Urine Collection Type VOID Urine Color YELLOW Urine Appearance CLEAR Urine Bilirubin NEGATIVE MG/DL Urine Ketones NEGATIVE Urine Specific [place] 1.025 Urine pH 7.0 Urine Protein NEGATIVE Urine Urobilinogen NEGATIVE Urine Nitrate NEGATIVE Urine Leukocyte Esterase NEGATIVE Urine Blood 10 TR Urine RBC 0-2 RBC/HPF Urine WBC 2-5 WBC/HPF Urine Squamous Epithelial Cells FEW #/HPF Urine Bacteria NONE SEEN Urine Other 2+ MUCUS #/HPF Urine Glucose NORMAL White Blood Count 14.2 10^3/uL Red Blood Count 3.87 10^6/uL Hemoglobin 9.3 g/dL Hematocrit 29.2 % Mean Corpuscular Volume 75.5 fL Mean Corpuscular Hemoglobin 24.0 pg Mean Corpuscular Hemoglobin Concent 31.8 g/dL Red Cell Distribution Width 16.3 % Platelet Count 281 10^3/uL Mean Platelet Volume 11.1 fL Neutrophils (%) (Auto) 86.6 % Lymphocytes (%) (Auto) 4.9 % Monocytes (%) (Auto) 4.5 % Neutrophils # (Auto) 12.3 10^3/uL Lymphocytes # (Auto) 0.70 10^3/uL1 Monocytes # (Auto) 0.6 10^3/uL Absolute Immature Granulocyte (auto 0.21 10^3 u/L Absolute Eosinophils (auto) 0.3 10^3/uL Immature Granulocytes % 1.50 % Eosinophils % 1.9 % Basophils % 0.6 % Basophils # 0.1 10^3/uL Blood Smear Pathologist Review SEE SEPARATE REPORT Erythrocyte Sedimentation Rate 56 mm/hr Prothrombin Time 10.3 SEC Prothrombin Time INR (Non-Therap) 1.0 D-Dimer 1.06 mg/L Sodium Level 137 mmol/L Potassium Level 4.1 mmol/L Chloride Level 101.0 mmol/L Carbon Dioxide Level 24.0 mmol/L Glucose Level 149 mg/dL Blood Urea Nitrogen 14 mg/dL Creatinine 0.94 mg/dL Calcium Level 8.6 mg/dL Anion Gap 16.1 Estimated GFR () 87.1 Est GFR (CKD-EPI)(Non-Afr Kazakh) 72.0 BUN/Creatinine Ratio 14.0 Total Bilirubin 0.7 mg/dL Direct Bilirubin 0.1 mg/dL Indirect Bilirubin 0.6 mg/dL Aspartate Amino Transf (AST/SGOT) 26 U/L Alanine Aminotransferase (ALT/SGPT) 30 U/L Alkaline Phosphatase 114 U/L Total Creatine Kinase 23 U/L Creatine Kinase MB < 0.5 ng/mL Troponin I < 0.02 ng/mL C-Reactive Protein 3.88 mg/dL Pro-B-Type Natriuretic Peptide 959 pg/mL Total Protein 7.6 g/dL Albumin 3.0 g/dL Procalcitonin 1.26 ng/mL Segmented Neutrophils 92 % Lymphocytes 3 % Monocytes 2 % Absolute Eosinophils (Manual) 1 % Basophils 2 % Platelet Estimate ADEQUATE Platelet Morphology NORMAL Microcytosis 1+ Current Medications Medications (Trade) Dose Ordered Sig/Shamar PRN Reason Start Time Stop Time Status Last Admin Acetaminophen (Tylenol) 650 mg Q6HR PRN FEVER 11/24/19 19:30 12/24/19 19:29 11/25/19 07:36 Doxycycline Hyclate 100 mg/ Sodium Chloride 100 ml @ 100 mls/hr Q12H 11/25/19 14:00 12/25/19 13:59 11/25/19 15:04 Furosemide (Lasix) 20 mg STAT STAT 11/25/19 17:49 11/25/19 17:50 UNV 11/25/19 17:55 Gentamicin Sulfate 120 mg/ Sodium Chloride 103 ml @ 100 mls/hr Q24HRS 11/24/19 20:30 12/24/19 20:29 11/25/19 20:07 Insulin Human Lispro (Humalog) Humalog. Give when food is... ACHS 11/25/19 11:30 12/25/19 11:29 Ketorolac Tromethamine (Toradol) 30 mg Q6H PRN PAIN 4 - 6 11/25/19 08:00 11/30/19 07:59 11/25/19 15:04 Levetiracetam (Keppra) 500 mg BID 11/25/19 09:00 12/25/19 08:59 11/25/19 08:28 Vancomycin HCl 1.5 gm/Sodium Chloride 300 ml @ 175 mls/hr Q12H 11/25/19 12:00 12/25/19 11:59 11/25/19 12:09 LEVEL 1 SEPSIS INFECTION CRITE: ABX Therapy, Recent Invasive Procedure LEVEL 2-SIRS (LIST ALL THAT AP: HR>90/min, WBC>04228 Cardiovascular Evidence: Not Assessed or None Hematologic Evidence: None/Not assessed Hepatic Evidence: None/Not assessed Metabolic Evidence: None/Not assessed Neurological Evidence: None/Not assessed Respiratory Evidence: None/Not assessed Renal Evidence: None/Not assessed O2 Sat by Pulse Oximetry: 94 Assessment/Plan Assessment/Plan Assessment/Plan 24 yo female with recurrent fever, sepsis, DM - cont empiric IV abx - abd wound care per wound care nurse - MRI of brain pending - ECHO pending - follow sugars - repeat labs tomorrow VANE JUÁREZ MD Nov 25, 2019 21:05
[2019-11-26] MEDS ORDERED: GENTAMICIN SULFATE ONE (00:30)
[2019-11-26] MEDS ORDERED: NS 100ML 100 ML IV ONE (00:31)
[2019-11-26 00:35] VITALS: BP 133/70
[2019-11-26] MEDS: VIBRAMYCIN 100 MG in NS 100ML 100 ML IV SCH ×2 (01:48→14:44)
[2019-11-26] MEDS: NS IV SCH ×3 (02:51→19:00)
[2019-11-26] MEDS: GENTAMICIN SULFATE IV SCH ×3 (02:51→19:00)
[2019-11-26 05:31] VITALS: BP 137/73
[2019-11-26 07:02] VITALS: BP 128/91
[2019-11-26] MEDS: TORADOL IV PRN (07:25)
[2019-11-26] MEDS: HUMALOG SQ SCH ×4 (07:30→22:03)
[2019-11-26] MEDS ORDERED: VANCOMYCIN HCL 1.25 GM in NS 250ML 250 ML IV SCH (09:00)
[2019-11-26] MEDS ORDERED: VANCOMYCIN HCL 1.5 GM in NS 250ML 300 ML IV SCH (09:00)
[2019-11-26] MEDS: KEPPRA PO SCH ×2 (09:05→21:52)
[2019-11-26 11:53] VITALS: BP 110/57
[2019-11-26] MEDS ORDERED: PROTONIX IV IV ONE (12:06)
[2019-11-26] MEDS ORDERED: ZOFRAN ONE (12:07)
[2019-11-26] MEDS ORDERED: ZOFRAN IV PRN (12:30)
[2019-11-26] MEDS: PROTONIX IV IV SCH (12:56)
[2019-11-26] MEDS: VANCOMYCIN HCL 1.5 GM in NS 250ML 300 ML IV SCH (12:58)
[2019-11-26 13:07] LABS: BASOPHIL # 0.1 10^3/uL (0.0-0.1); BASOPHIL % 1.1 % (0.0-0.2); EOSINOPHIL # 0.3 10^3/uL (0.0-0.2); EOSINOPHIL % 3.5 % (0.0-5.0); LYMPHOCYTES # 2.37 10^3/uL1 (1.0-4.8); LYMPHOCYTES % 32.7 % (24.0-44.0); MEAN CORP HGB 23.8 pg (26-34); MONOCYTES # 0.3 10^3/uL (0.3-0.8); MONOCYTES % 4.6 % (5.0-12.0); NEUTROPHIL # 4.1 10^3/uL (1.8-7.7); NEUTROPHILS % 56.4 % (41.0-85.0); PLATELET COUNT 306 10^3/uL (150-400); RED CELL DISTRIBUTION WIDTH 16.1 % (11.5-14.5)
--- NOTE | 2019-11-26 13:10 | DIREP ---
PROCEDURE:MRI - BRAIN WITH AND WITHOUT CONTRAST COMPARISON:None. INDICATIONS:HEALY, fever TECHNIQUE:A variety of imaging planes and parameters were utilized for visualization of suspected pathology in the brain. Images were performed without gadolinium contrast.. FINDINGS: CSF SPACES:Ventricles, cisterns, and sulci are appropriate for age. No hydrocephalus, subarachnoid hemorrhage, or mass. CEREBRUM:No edema, hemorrhage, mass, acute infarction, or inappropriate atrophy. CEREBELLUM:No edema, hemorrhage, mass, acute infarction, or inappropriate atrophy. BRAINSTEM:No edema, hemorrhage, mass, acute infarction, or inappropriate atrophy. SKULL:No mass or other significant visible lesion. SINUSES:Limited views demonstrate no significant mucosal thickening or fluid. OTHER:No pathologic enhancement. CONCLUSION: 1. No acute intracranial abnormality. 2. No pathologic enhancement. Dictated by: Evan Grigsby M.D. on 11/25/2019 at 02:39 PM
[2019-11-26 17:22] VITALS: BP 123/77
--- NOTE | 2019-11-26 17:59 | NUR ---
RECEIVED ORDERS TO HOLD 1900 DOSE OF GENTAMYCIN IF TROUGH IS OVER 1. IF THE PEAK IS OVER 8 AT 2030 IT SHOULD ALSO BE HELD. WILL CONTINE TO MONITOR.
--- NOTE | 2019-11-26 18:18 | ECHO ---
DATE OF SERVICE: 11/25/2019 A 24-year-old female with heart murmur. PRIMARY PHYSICIAN: Dr. Fontana. FINDINGS: Mitral valve shows normal motion, mitral regurgitation with 2.92 velocity with normal E to A ratio. Aorta is normal with normal aortic valve opening of 2.67 square cm, mild sclerosis is noted. Right tricuspid valve shows tricuspid regurgitation of 2.84 meters with right ventricular systolic pressure of 42 mm consistent with ized-ni-nxpniepm pulmonary hypertension. Right ventricle mildly enlarged to 3.1 cm. Right atrium enlarged to 4.4 cm. Left atrium enlarged in 4-chamber longitudinal dimension to 5.4 cm. Left ventricle is definitely enlarged to 6.2 cm end-diastolic dimension, 4.47 cm end-systolic dimension with normal wall thickness, motion and contraction. On 2D, the ejection fraction is about 48% and increased end-diastolic volume to 164 mL. Pericardium is normal. IVC is normal. Hence, picture consistent with LV enlargement with volume overload, increased end-diastolic volume with a mildly decreased LV systolic function with 48% ejection fraction with mild biatrial enlargement and right atrial enlargement with uacx-wk-xnzaklob pulmonary hypertension and mild mitral regurgitation and some calcification of the aorta. Assessment for LV volume overload to be considered. No thrombus in any other cardiac chambers. Laxmichand MD Pooja DR: CAROLINE/more JOB# [id number]
--- NOTE | 2019-11-26 18:23 | NUR ---
LEFT MIDLINE BURNING WHEN FLUSHED. PATIENT REPORTS PAIN DOWN HER ARM. CONTACTED FERNANDA CHRISTENSEN. SHE IS GOING TO COME ASSESS AFTER SHIFT CHANGE. WILL CONTINUE TO MONITOR SITE.
--- NOTE | 2019-11-26 19:15 | NUR ---
IV CATHETER INSERTION 20G IV PLACED TO LEFT HAND, X2 ATTEMPT. LINE INTACT, PATENT AND SALINE LOCKED. PT TOLERATED PLACEMENT WELL. REPORT OF NEW LINE GIVEN TO Nathen GUTIERREZ RN.
--- NOTE | 2019-11-26 19:25 | NUR ---
MIDLINE REMOVAL PT C/O BURNING SENSATION FROM ARMPIT TO WRIST ON LEFT ARM WITH ANTIBIOTIC ADMINISTRATION AND WITH SALINE FLUSH. ARM EXAMINED WITH NO REDNESS, STREAKING, SWELLING, COLDNESS OR WARMTH NOTED. LEFT ARM SOFT WITH NO HARDENED AREAS. ARM MEASURING AT 32CM SHOWING NO SWELLING SINCE MIDLINE PLACEMENT. PT PLACED IN TRENDELENBURG POSITION, INSTRUCTED TO HUM DURING REMOVAL OF MIDLINE, LINE REMOVED, TIP IN TACT AND 4X4 GAUZE WITH BIOCLUSIVE PLACED TO SITE. PT TOLERATED PROCEDURE WELL. DRESSING DRY AND INTACT. REPORT GIVEN TO Nathen GUTIERREZ RN. Addendum: 11/26/19 at 2014 by [address]ABRIEL MONK RN DR JUÁREZ NOTIFIED OF LINE REMOVAL. Syed MORROW RN MIDLINE DIRECTOR NOTIFIED OF LINE REMOVAL. PICC LINE TO BE PLACED TOMORROW.
--- NOTE | 2019-11-26 20:09 | NUR ---
UPDATE PATIENT OFF FLOOR FOR LUNG CT SCAN WITH CONTRAST
--- NOTE | 2019-11-26 20:16 | PRM.PN ---
Subjective Subjective Date: Nov 26, 2019 Time: 20:00 Subjective Pt has some SOB but overall feels better Patient History: Hypertension 30 MOTHER 31 FATHER No known health problems G8 SISTER 19 CHILD 19 CHILD VTE VTE Risk Total Score: 2 VTE Risk Score VTE Risk: Score 0-1 = Low Risk (Aggressive mobilization; early ambulation; no VTE prophylaxis required) Score 2: Moderate Risk (Intermittent/Pneumatic Compression Device OR Lovenox/Heparin/Coumadin) Score 3-4: High Risk (Intermittent/Pneumatic Compression Device AND Lovenox/Heparin/Coumadin) Score > or =5: Highest Risk (Intermittent/Pneumatic Compression Device AND Lovenox/Heparin/Coumadin) Antico:Hep/LMWH/Coum/Xarelto: No Mechanical device ordered: No Review of Systems Constitutional: Malaise; No: Fever, Chills, Sweats Eyes: No: Vision change, Conjunctivae inflammation ENT: No: Ear pain, Ear discharge, Nose pain Respiratory: Shortness of breath; No: Cough, Dry Cardiovascular: No: Chest Pain, Palpitations, Orthopnea Gastrointestinal: No: Nausea, Abdominal Pain, Diarrhea Genitourinary: No Dysuria, No Frequency, No Incontinence, No Hematuria Musculoskeletal: No: neck pain, shoulder pain, arm pain Skin: No: Lesions, Jaundice, Bruising Neurological: No: Numbness, Incoordination, Change in speech, Confusion, Seizures Allergies: Coded Allergies: Sulfa (Sulfonamide Antibiotics) (Verified Allergy, Severe, VOMITING, SEVERE RASH, 09/03/15) Penicillins (Verified Allergy, Unknown, RASH, VOMITING, 09/03/15) cephalexin (Verified Allergy, Unknown, RASH, VOMITING, 09/03/15) Scheduled Insulin Glargine,Hum.rec.anlog (Lantus Solostar), 75 UNITS SQ ACB Insulin Lispro (Humalog), 16 UNIT SQ ACB Levetiracetam (Keppra), 1 TAB PO BID, (Reported) Discontinued Medications Butalb/Acetaminophen/Caffeine (Fioricet 50-300-40 mg Capsule), 1 EACH PO Q6 Discontinued Reason: No Longer Taking Hydroxyprogesterone Caproate (Pennie), 275 MG IM Q7D Discontinued Reason: No Longer Taking Insulin Glargine,Hum.rec.anlog (Lantus Solostar), 98 UNIT SQ HS Discontinued Reason: No Longer Taking Insulin Lispro (Humalog), 20 UNIT SQ AC Discontinued Reason: No Longer Taking Insulin Lispro (Humalog), 14 UNIT SQ AC Discontinued Reason: No Longer Taking Iron Fum & Ps Cmp/Vit C & B (Integra Capsule), 1 EACH PO DAILY24, (Reported) Discontinued Reason: No Longer Taking Objective Vitals and I/O Vital Sign - Last 24 Hours 11/25/19 11/26/19 11/26/19 11/26/19 22:35 00:35 05:31 07:02 Temp 98.6 97.8 97.9 Pulse 82 69 75 Resp 18 18 18 B/P (MAP) 133/70 (91) 137/73 (94) 128/91 (103) Pulse Ox 95 95 96 O2 Delivery Room Air Room Air Room Air Room Air 11/26/19 11/26/19 11/26/19 11:53 15:43 17:22 Temp 97.9 Pulse 66 77 Resp 18 18 B/P (MAP) 110/57 (74) 123/77 (92) Pulse Ox 94 96 O2 Delivery Room Air Room Air Room Air Intake and Output 11/26/19 07:00 Intake Total 1085 ml Output Total 1550 ml Balance -465 ml General: Alert, Oriented X3, Cooperative, No acute distress HEENT: Atraumatic, PERRLA, EOMI, Mucous membr. moist/pink Neck: Supple, No JVD Lungs: Clear to auscultation, Normal air movement Heart: Regular rate, Normal S1, Normal S2 Abdomen: Normal bowel sounds, Soft Extremities: No clubbing, No cyanosis Skin: No rashes, No breakdown, No significant lesion Neuro: Normal speech Psych/Mental Status: Mental status NL, Mood NL All Results(Lab/Rad) Current Medications Medications (Trade) Dose Ordered Sig/Shamar Route PRN Reason Start Time Stop Time Status Last Admin Dose Admin Sodium Chloride 1,000 ml @ 1,000 mls/hr Q1H ONCE IV 11/24/19 19:29 11/25/19 01:32 DC 11/24/19 20:36 Acetaminophen (Tylenol) 650 mg Q6HR PRN PO FEVER 11/24/19 19:30 12/24/19 19:29 11/25/19 07:36 Doxycycline Hyclate 100 mg/ Sodium Chloride 100 ml @ 100 mls/hr Q12HR IV 11/24/19 21:00 11/25/19 08:42 DC 11/25/19 01:59 Vancomycin HCl 1.5 gm/Sodium Chloride 300 ml @ 175 mls/hr Q12HR IV 11/24/19 21:00 11/25/19 08:36 DC 11/25/19 00:12 Gentamicin Sulfate (Gentamicin Sulfate) 120 mg Q24HRS IV 11/24/19 20:30 11/25/19 08:29 DC 11/24/19 22:24 Sodium Chloride 100 ml @ ud STK-MED ONCE IV 11/24/19 22:16 11/24/19 22:18 DC Vancomycin HCl 1 ml @ ud STK-MED ONCE .ROUTE 11/24/19 22:41 11/24/19 22:42 DC Sodium Chloride 250 ml @ ud STK-MED ONCE IV 11/24/19 22:41 11/24/19 22:44 DC Sodium Chloride 500 ml @ ud STK-MED ONCE IV 11/25/19 00:31 11/25/19 00:33 DC Sodium Chloride 100 ml @ ud STK-MED ONCE IV 11/25/19 01:37 11/25/19 01:39 DC Ketorolac Tromethamine (Toradol) 30 mg Q6H PRN IV PAIN 4 - 6 11/25/19 08:00 11/30/19 07:59 11/25/19 15:04 Ketorolac Tromethamine (Toradol) 30 mg STK-MED ONCE .ROUTE 11/25/19 07:48 11/25/19 07:50 DC Insulin Human Lispro (Humalog) Humalog. Give when food is... ACHS SQ 11/25/19 11:30 12/25/19 11:29 Sodium Chloride 1,000 ml @ 500 mls/hr Q2H ONCE IV 11/25/19 08:00 11/25/19 09:59 DC 11/25/19 08:00 Levetiracetam (Keppra) 500 mg BID PO 11/25/19 09:00 12/25/19 08:59 11/25/19 08:28 Gentamicin Sulfate 120 mg/ Sodium Chloride 103 ml @ 100 mls/hr Q24HRS IV 11/24/19 20:30 12/24/19 20:29 11/25/19 20:07 Vancomycin HCl 1.5 gm/Sodium Chloride 300 ml @ 175 mls/hr Q12H IV 11/25/19 12:00 12/25/19 11:59 11/25/19 12:09 Doxycycline Hyclate 100 mg/ Sodium Chloride 100 ml @ 100 mls/hr Q12H IV 11/25/19 14:00 12/25/19 13:59 11/25/19 15:04 Sodium Chloride 250 ml @ ud STK-MED ONCE IV 11/25/19 15:20 11/25/19 15:23 DC Furosemide (Lasix) 20 mg STAT STAT IV 11/25/19 17:49 11/25/19 17:50 UNV 11/25/19 17:55 Course Sepsis Screening Results: Posi: NEGATIVE Sepsis Qualifier/Stage: NO DEFINITE RISK Duration or Total Time Spent w: 60 min Vitals & review Data Vital Sign - Last 24 Hours 11/24/19 11/25/19 11/25/19 11/25/19 21:05 00:15 04:11 11:46 Temp 98.1 98.5 98.3 Pulse 82 81 74 Resp 16 16 18 B/P (MAP) 120/72 (88) 128/86 (100) 125/76 (92) Pulse Ox 94 98 94 O2 Delivery Room Air Room Air Room Air Room Air 11/25/19 11/25/19 11/25/19 16:26 16:39 17:38 Temp 97.6 Pulse 63 Resp 18 B/P (MAP) 137/82 (100) Pulse Ox 94 O2 Delivery Room Air Room Air Room Air Intake and Output 11/25/19 06:59 Intake Total 1350 ml Output Total 600 ml Balance 750 ml Laboratory Tests Test 11/24/19 11:20 11/24/19 19:43 11/24/19 20:12 Urine Collection Type VOID Urine Color YELLOW Urine Appearance CLEAR Urine Bilirubin NEGATIVE MG/DL Urine Ketones NEGATIVE Urine Specific [place] 1.025 Urine pH 7.0 Urine Protein NEGATIVE Urine Urobilinogen NEGATIVE Urine Nitrate NEGATIVE Urine Leukocyte Esterase NEGATIVE Urine Blood 10 TR Urine RBC 0-2 RBC/HPF Urine WBC 2-5 WBC/HPF Urine Squamous Epithelial Cells FEW #/HPF Urine Bacteria NONE SEEN Urine Other 2+ MUCUS #/HPF Urine Glucose NORMAL White Blood Count 14.2 10^3/uL Red Blood Count 3.87 10^6/uL Hemoglobin 9.3 g/dL Hematocrit 29.2 % Mean Corpuscular Volume 75.5 fL Mean Corpuscular Hemoglobin 24.0 pg Mean Corpuscular Hemoglobin Concent 31.8 g/dL Red Cell Distribution Width 16.3 % Platelet Count 281 10^3/uL Mean Platelet Volume 11.1 fL Neutrophils (%) (Auto) 86.6 % Lymphocytes (%) (Auto) 4.9 % Monocytes (%) (Auto) 4.5 % Neutrophils # (Auto) 12.3 10^3/uL Lymphocytes # (Auto) 0.70 10^3/uL1 Monocytes # (Auto) 0.6 10^3/uL Absolute Immature Granulocyte (auto 0.21 10^3 u/L Absolute Eosinophils (auto) 0.3 10^3/uL Immature Granulocytes % 1.50 % Eosinophils % 1.9 % Basophils % 0.6 % Basophils # 0.1 10^3/uL Blood Smear Pathologist Review SEE SEPARATE REPORT Erythrocyte Sedimentation Rate 56 mm/hr Prothrombin Time 10.3 SEC Prothrombin Time INR (Non-Therap) 1.0 D-Dimer 1.06 mg/L Sodium Level 137 mmol/L Potassium Level 4.1 mmol/L Chloride Level 101.0 mmol/L Carbon Dioxide Level 24.0 mmol/L Glucose Level 149 mg/dL Blood Urea Nitrogen 14 mg/dL Creatinine 0.94 mg/dL Calcium Level 8.6 mg/dL Anion Gap 16.1 Estimated GFR () 87.1 Est GFR (CKD-EPI)(Non-Afr Russian) 72.0 BUN/Creatinine Ratio 14.0 Total Bilirubin 0.7 mg/dL Direct Bilirubin 0.1 mg/dL Indirect Bilirubin 0.6 mg/dL Aspartate Amino Transf (AST/SGOT) 26 U/L Alanine Aminotransferase (ALT/SGPT) 30 U/L Alkaline Phosphatase 114 U/L Total Creatine Kinase 23 U/L Creatine Kinase MB < 0.5 ng/mL Troponin I < 0.02 ng/mL C-Reactive Protein 3.88 mg/dL Pro-B-Type Natriuretic Peptide 959 pg/mL Total Protein 7.6 g/dL Albumin 3.0 g/dL Procalcitonin 1.26 ng/mL Segmented Neutrophils 92 % Lymphocytes 3 % Monocytes 2 % Absolute Eosinophils (Manual) 1 % Basophils 2 % Platelet Estimate ADEQUATE Platelet Morphology NORMAL Microcytosis 1+ Current Medications Medications (Trade) Dose Ordered Sig/Shamar PRN Reason Start Time Stop Time Status Last Admin Acetaminophen (Tylenol) 650 mg Q6HR PRN FEVER 11/24/19 19:30 12/24/19 19:29 11/25/19 07:36 Doxycycline Hyclate 100 mg/ Sodium Chloride 100 ml @ 100 mls/hr Q12H 11/25/19 14:00 12/25/19 13:59 11/25/19 15:04 Furosemide (Lasix) 20 mg STAT STAT 11/25/19 17:49 11/25/19 17:50 UNV 11/25/19 17:55 Gentamicin Sulfate 120 mg/ Sodium Chloride 103 ml @ 100 mls/hr Q24HRS 11/24/19 20:30 12/24/19 20:29 11/25/19 20:07 Insulin Human Lispro (Humalog) Humalog. Give when food is... ACHS 11/25/19 11:30 12/25/19 11:29 Ketorolac Tromethamine (Toradol) 30 mg Q6H PRN PAIN 4 - 6 11/25/19 08:00 11/30/19 07:59 11/25/19 15:04 Levetiracetam (Keppra) 500 mg BID 11/25/19 09:00 12/25/19 08:59 11/25/19 08:28 Vancomycin HCl 1.5 gm/Sodium Chloride 300 ml @ 175 mls/hr Q12H 11/25/19 12:00 12/25/19 11:59 11/25/19 12:09 LEVEL 1 SEPSIS INFECTION CRITE: ABX Therapy LEVEL 2-SIRS (LIST ALL THAT AP: [id number] Cardiovascular Evidence: Not Assessed or None Hematologic Evidence: None/Not assessed Hepatic Evidence: None/Not assessed Metabolic Evidence: None/Not assessed Neurological Evidence: None/Not assessed Respiratory Evidence: None/Not assessed Renal Evidence: None/Not assessed O2 Sat by Pulse Oximetry: 96 Assessment/Plan Assessment/Plan Assessment/Plan 24 yo female with recurrent fever, resolved sepsis, DM. SOB with abnl ECHO - cont empiric IV abx - cont abd wound care - CTA of chest - follow clinically VANE JUÁREZ MD Nov 26, 2019 20:15
[2019-11-26] MEDS ORDERED: RESTORIL PO ONE (21:30)
[2019-11-26 21:45] VITALS: BP 115/75
--- NOTE | 2019-11-26 22:51 | DIREP ---
PROCEDURE:CTA - CHEST (NON CORONARY) COMPARISON:[facility], CR, XRAY CHEST 2 VWS, 11/24/2019, 09:[address] [facility], CT, CT ABD/PELVIS W/ CONTRAST, 11/18/2019, 06:07 PM. INDICATIONS:Short of breath TECHNIQUE:After obtaining the patient's consent, CTA images were obtained without and with non-ionic intravenous contrast material. Multi-planar MIP/3-D images were created to optimize visualization of vascular anatomy. FINDINGS: VASCULATURE:Normal. No pulmonary emboli visualized. THORACIC AORTA:Normal. No aneurysm or dissection. LUNGS/PLEURA:Very small bilateral pleural effusions. No significant pulmonary parenchymal abnormalities. MEDIASTINUM/LEWIS:Normal. No masses or enlarged nodes. CARDIAC:Normal cardiac size. CHEST WALL:Normal. LIMITED ABDOMEN:Negative. BONES:Normal. OTHER:Normal. CONCLUSION:Very small bilateral pleural effusions. No other acute chest abnormalities. Dictated by: Keven Abbott M.D. on 11/26/2019 at 10:44 PM
[2019-11-27] MEDS: VANCOMYCIN HCL 1.5 GM in NS 250ML 300 ML IV SCH ×2 (01:31→12:00)
[2019-11-27 01:53] VITALS: BP 118/69
[2019-11-27] MEDS: VIBRAMYCIN 100 MG in NS 100ML 100 ML IV SCH (03:32)
[2019-11-27] MEDS: NS IV SCH (04:44)
[2019-11-27] MEDS: GENTAMICIN SULFATE IV SCH (04:44)
[2019-11-27] MEDS: HUMALOG SQ SCH ×4 (07:30→20:40)
[2019-11-27 08:57] VITALS: BP 133/88
[2019-11-27] MEDS: PROTONIX IV IV SCH (09:47)
[2019-11-27] MEDS: KEPPRA PO SCH ×2 (09:47→20:16)
[2019-11-27] MEDS ORDERED: GENTAMICIN SULFATE IV SCH (13:00)
[2019-11-27] MEDS ORDERED: NS IV SCH (13:00)
[2019-11-27] MEDS: VIBRAMYCIN PO SCH ×2 (13:28→20:16)
[2019-11-27 16:53] VITALS: BP 125/72
[2019-11-27 20:00] VITALS: BP 141/95
[2019-11-28] VITALS: BP 159/80
[2019-11-28] MEDS: TYLENOL PO PRN
[2019-11-28 04:34] VITALS: BP 133/78
[2019-11-28] MEDS: HUMALOG SQ SCH ×2 (07:30→11:30)
[2019-11-28 07:40] VITALS: BP 128/95
[2019-11-28] MEDS ORDERED: PROTONIX PO ONE (08:46)
[2019-11-28] MEDS: VIBRAMYCIN PO SCH (08:53)
[2019-11-28] MEDS: KEPPRA PO SCH (08:54)
[2019-11-28] MEDS ORDERED: PROTONIX PO SCH (09:00)
[2019-11-28 10:22] VITALS: BP 128/77
[2019-11-28 11:50] VITALS: BP 128/76
[2019-11-28] MEDS ORDERED: DOXY100T PO (12:23)
--- NOTE | 2019-11-28 12:29 | PRM.DC ---
DISCHARGE SUMMARY DISCHARGE SUMMARY DATE OF ADMISSION: November 24, 2019 DATE OF DISCHARGE: November 28, 2019 ADMITTING DIAGNOSES: Fever with early sepsis and malaise with type 2 diabetes mellitus DISCHARGE DIAGNOSES: Fever with early sepsis resolved and type 2 diabetes mellitus DISCHARGE DISPOSITION: Patient is discharged to home DISCHARGE CONDITION: Stable HOSPITAL COURSE: 24-year-old female who just recently delivered her baby immaturely and had gone home and developed fever with seizures. Is suspected that she had a eclamptic seizure and was hospitalized in [place] and had antibiotics for 5 days with no positive cultures known. She had a spinal tap that was negative for meningitis. She was sent home and again developed fever with feeling bad and was readmitted back to [place] and was given IV antibiotics again. At that time she had a diagnosis of mastitis with a tubal ligation wound infection and she was sent home on p.o. Zyvox after 5 days. She came into my office again having fevers and not feeling well and had an elevated white count so I put her back into our hospital and start her on IV vancomycin with gentamicin and doxycycline. She has been around animals at home during her and to have been ticks in the house that was reported by her family. I did a peripheral smear that has been still been pending however her white count has normalized on IV antibiotics for 5 days now. She did have a headache that is improved. An MRI of the brain was normal. I did a CTA of the chest did not show any acute abnormalities or clots of the chest/lungs. UA is normal. Her tubal ligation him wound looks good. And her mastitis has resolved. At this point she is afebrile and ready to go home. I do think that there have may have been a an arthropod/tick borne vector infection. I am going to send her home on p.o. doxycycline for now. DIET: Resume home diet ACTIVITY: As tolerated; stay away from animals for now OTHER: Use her incentive spirometry frequently at home MEDICATIONS: 1. Resume her home medications 2. Resume her home p.o. Zyvox until Monday morning 3. Doxycycline 100 mg p.o. twice daily x7 days FOLLOW-UP: Follow-up in my office in 10 days; my office staff will make the appointment VANE JUÁREZ MD Nov 28, 2019 12:29
[2019-11-28 13:00] VITALS: BP 128/76
== END 2019-11-28 13:31 | disposition home or self-care (01) | DRG 776 ==
LOC: MS 18:26 → EEVIPCON 19:29 → OBSVTOIN 19:29
PROVIDERS: ADMIT Pediatrics; ATTEND Pediatrics
PROC: 05HC33Z Insertion of Infusion Device into Left Basilic Vein, Percutaneous Approach (ICD-10-PCS; 2019-11-25)
PROC: B54NZZZ Ultrasonography of Left Upper Extremity Veins (ICD-10-PCS; principal; 2019-11-25 09:30)
DX: O85 Puerperal sepsis (principal); O24.93 Unspecified diabetes mellitus in the puerperium; O99.355 Diseases of the nervous system complicating the puerperium; R51 Headache; Z82.49 Family history of ischemic heart disease and other diseases of the circulatory system; Z90.49 Acquired absence of other specified parts of digestive tract; Z98.51 Tubal ligation status
CPT/HCPCS: 36415; 36569; 70553; 71046; 71275; 80048; 80076; 80170; 80202; 81000; 82550; 82553; 83880; 84145; 84439; 84443; 84484; 85025; 85060; 85379; 85610; 85651; 86140; 87040; 87070; 93005; 93306; A9579; C9113; G0378; J1580; J1885; J2405; J3370; J3490; J7030; J7040; J7050; Q9965; A6209; A9270; J1940